=== PATIENT | male | born 1955 | race Caucasian/White ===

== ENCOUNTER 2020-08-22 11:56 | Inpatient (IN) | payer MEDICARE, OTHER ==
[~2020-08-22] VITALS: Ht 180.3 cm; Wt 95.3 kg
[2020-08-22] MEDS ORDERED: MECLIZINE HCL 25 MG TABLET PO ONE (12:15)
[2020-08-22] MEDS ORDERED: IV NORMAL SALINE 1000 ML BAG IV ONE (12:15)
[2020-08-22] MEDS ORDERED: ASPI-612 PO (12:26)
[2020-08-22] MEDS ORDERED: MECLIZINE HCL 25 MG TABLET ONE (12:28)
--- NOTE | 2020-08-22 12:30 | NUR ---
Pt refused to have blood drawn at this time, Dr Cardozo made aware.
--- NOTE | 2020-08-22 12:34 | NUR ---
Dr Cardozo at the bedside for MSE.
--- NOTE | 2020-08-22 12:50 | NUR ---
Pt out of Er for CT.
--- NOTE | 2020-08-22 13:28 | NUR ---
Covid swab done and sent to lab
[2020-08-22 13:45] LABS: BASOPHILS % (AUTO) 0.3 % (0.0-2.0); EOSINOPHILS # (AUTO) 0.1 K/uL (0.0-0.7); EOSINOPHILS % (AUTO) 0.9 % (0.0-7.0); HEMATOCRIT 44.7 % (36.7-47.1); HEMOGLOBIN 14.9 g/dL (12.5-16.3); LYMPHOCYTES # (AUTO) 0.7 K/uL (20.0-40.0); LYMPHOCYTES % (AUTO) 11.8 % (20.5-51.5); MEAN CORPUSCULAR HEMOGLOBIN 31.9 uug (23.8-33.4); MEAN CORPUSCULAR HGB CONC 33 g/dL (32.5-36.3); MEAN CORPUSCULAR VOLUME 95.5 fL (73.0-96.2); MONOCYTES # (AUTO) 0.6 K/uL (2.0-10.0); MONOCYTES % (AUTO) 9.3 % (0.0-11.0); NEUTROPHILS # (AUTO) 4.7 K/uL (1.8-8.9); NEUTROPHILS % (AUTO) 77.7 % (38.5-71.5); PLATELET COUNT (AUTO) 190 K/uL (152-348); RED BLOOD CELL COUNT(AUTO) 4.68 MIL/uL (4.06-5.63)
[2020-08-22 14:01] LABS: CREATININE 0.8 mg/dL (0.6-1.3); POTASSIUM 3.7 mmol/L (3.5-5.1)
[2020-08-22 14:07] LABS: BILIRUBIN,DIRECT 0.1 mg/dL (0.0-0.2); BILIRUBIN,TOTAL 0.3 mg/dL (0.2-1.0); TOTAL PROTEIN, SERUM 6.7 g/dL (6.4-8.2)
[2020-08-22 14:25] LABS: *BILIRUBIN,URIN NEGATIVE (NEGATIVE); *BLOOD, URINE NEGATIVE (NEGATIVE); *CLARITY,URINE CLEAR (CLEAR); *COLOR,URINE YELLOW (YELLOW); *KETONES,URINE NEGATIVE (NEGATIVE); *UROBILINOGEN,URINE 0.2 E.U./dl (NORMAL); LEUKOCYTE ESTERASE ,URINE NEGATIVE (NEGATIVE); NITRITE, URINE NEGATIVE (NEGATIVE); PH,URINE 6.5 (5.0-8.0); UGLUCOSE NEGATIVE (NEGATIVE)
--- NOTE | 2020-08-22 15:48 | NUR ---
64 YEAR OLD MALE RECEIVED TO ROOM 304 FOR SYNCOPE .PT IS AXOX4/VS ARE STABLE CALL LIGHT WITH IN REACH. NOTIFIED FOR THE ADMISSION
[2020-08-22 16:00] VITALS: BP 143/75
[2020-08-22] MEDS ORDERED: ONDANSETRON 4 MG/2 ML VIAL IV PRN (16:00)
[2020-08-22] MEDS ORDERED: IV NS 1000 ML 1,000 ML IV PRN (16:00)
[2020-08-22] MEDS ORDERED: Z GUARD REMEDY PASTE 57 GM TUBE TOP PRN (16:00)
[2020-08-22] MEDS ORDERED: MAGNESIUM HYDROXIDE 30 ML LIQUID UDC PO PRN (16:00)
[2020-08-22] MEDS ORDERED: ACETAMINOPHEN 325 MG TABLET PO PRN (16:00)
[2020-08-22] MEDS ORDERED: SWABABLE VALVE TRANSFER SET EA MC ONE (17:00)
[2020-08-22] MEDS ORDERED: IOHEXOL 350 100 ML INFUS..BTL ONE (17:00)
[2020-08-22] MEDS ORDERED: IV NORMAL SALINE 250 ML IV ONE (17:00)
[2020-08-22] MEDS ORDERED: CLIN300C12 PO (17:44)
--- NOTE | 2020-08-22 18:20 | NUR ---
pt refused the iv fluids and cta of the brain made aware
[2020-08-22 20:17] VITALS: BP 140/77
[2020-08-22] MEDS: SIMVASTATIN 10 MG TABLET PO SCH (21:00)
[2020-08-22] MEDS: CULTURELLE CAPSULE PO SCH (21:00)
[2020-08-22] MEDS: TAMSULOSIN HCL 0.4 MG CAP.SR.24H PO SCH (21:00)
[2020-08-22] MEDS: ENOXAPARIN SODIUM 40 MG/0.4 ML DISP.SYRIN SQ SCH (21:00)
--- NOTE | 2020-08-22 22:46 | NUR ---
Received patient sitting in bed. AAOx4. No s/s of acute distress noted at this time. Pt on RA denies SOB, lightheadedness, and dizziness. hospital monitor in place, Sinus rhythm HR 79. Patient refused all evening medications stating "I do not like to take anything at night, what if I am asleep and do not know if I am having a reaction. I came here to fix my headaches and not all this other minor stuff". Provided patient education on medications, patient made aware and continued to refuse. Bed low and locked. Safety measures in place.
--- NOTE | 2020-08-23 00:21 | NUR ---
Patient refused midnight medications stating "Ill take it in the morning, I don't want to start anything new at night". Provided patient with medication education, continued to refused.
[2020-08-23 00:40] VITALS: BP 134/87
[2020-08-23 05:23] VITALS: BP 124/61
[2020-08-23 06:16] LABS: BASOPHILS % (AUTO) 0.5 % (0.0-2.0); EOSINOPHILS # (AUTO) 0.1 K/uL (0.0-0.7); EOSINOPHILS % (AUTO) 2.1 % (0.0-7.0); HEMATOCRIT 42.8 % (36.7-47.1); HEMOGLOBIN 14.3 g/dL (12.5-16.3); LYMPHOCYTES # (AUTO) 1.5 K/uL (20.0-40.0); LYMPHOCYTES % (AUTO) 22.7 % (20.5-51.5); MEAN CORPUSCULAR HGB CONC 33 g/dL (32.5-36.3); MEAN CORPUSCULAR VOLUME 95.8 fL (73.0-96.2); MONOCYTES # (AUTO) 0.7 K/uL (2.0-10.0); MONOCYTES % (AUTO) 10.8 % (0.0-11.0); NEUTROPHILS # (AUTO) 4.2 K/uL (1.8-8.9); NEUTROPHILS % (AUTO) 63.9 % (38.5-71.5); PLATELET COUNT (AUTO) 203 K/uL (152-348); RED BLOOD CELL COUNT(AUTO) 4.47 MIL/uL (4.06-5.63); WHITE BLOOD COUNT (AUTO) 6.6 K/uL (3.6-10.2)
[2020-08-23 06:35] LABS: CREATININE 0.8 mg/dL (0.6-1.3); MAGNESIUM 2.3 mg/dL (1.8-2.4)
[2020-08-23 06:48] LABS: THYROID STIMULATING HORMONE 1.445 mIU/mL (0.358-3.740)
[2020-08-23] MEDS: PANTOPRAZOLE SODIUM 40 MG TABLET.DR PO SCH (06:56)
--- NOTE | 2020-08-23 07:30 | NUR ---
Received pt in bed awake, alert and oriented times 4. Pt is hyperverbal. He is worried about everything including medications and treatments. He is refusing to take medications because he says he searched them up in internet and that can cause him arm. No distress noted. Pt is anxious and worried. Patient is on room air with IV in right wrist. Safety precautions are in place. Will continue to monitor.
[2020-08-23] MEDS: CLINDAMYCIN HCL 300 MG CAPSULE PO SCH ×4 (07:56→17:29)
[2020-08-23] MEDS: CULTURELLE CAPSULE PO SCH ×2 (08:44→21:00)
[2020-08-23] MEDS: ASPIRIN 81 MG TAB.CHEW PO SCH (08:44)
[2020-08-23 11:27] VITALS: BP 111/73
--- NOTE | 2020-08-23 14:30 | NUR ---
Started new IV on patient for CTA scan on the left antecubital. IV intact patent and flushing. Patient tolerated procedure well.
[2020-08-23] MEDS ORDERED: IOHEXOL 350 100 ML INFUS..BTL ONE (14:37)
[2020-08-23] MEDS ORDERED: SWABABLE VALVE TRANSFER SET EA MC ONE (14:37)
[2020-08-23] MEDS ORDERED: IV NORMAL SALINE 250 ML IV ONE (14:38)
--- NOTE | 2020-08-23 14:45 | NUR ---
Received call from sterile technician. Stated that patient complaining that he thinks IV not in place. US done prior to injecting dye & showed that IV was in the vein & patent. After multiple 10cc flushes with ns, tech. attempted to inject the dye. States the high power flush of dye immediately blew the vein. Coming back to room. Stated patient very upset, & not accepting the fact that his veins are very fragile. Warm pack applied.
--- NOTE | 2020-08-23 15:00 | NUR ---
Pt brought back from CT scan because IV infiltrated. Tech report that the vein blew after multiple flushes. He reports that with the high pressure the vein blew. Pt was Irate. Blamed me for starting a bad IV. He says he doesn't want me as his nurse any longer. After multiple tries to calm him down and restart IV he refused and also says he will not do the CT today. Heat and ice packs were given to pt. Charge nurse, nursing supervisor metalizing and hospitalist all aware of what happened. Will continue to monitor.
[2020-08-23 15:30] VITALS: BP 139/74
--- NOTE | 2020-08-23 17:30 | NUR ---
ATTEMPTED TO RESTART IV FOR CONTRAST ADMINISTRATION. PATIENT REFUSED. STATES HE IS FEELING TOO ANXIOUS AT THIS TIME AND HE IS FEARFUL OF THE DYE. Frida PACHECO.
--- NOTE | 2020-08-23 17:30 | NUR ---
ATTEMPTED TO RESTART IV. PATIENT REFUSED. STATES HE FEELING TOO ANXO
--- NOTE | 2020-08-23 19:00 | NUR ---
Pt refuses to have me continue my care for him. Endorse pt to oncoming nurse.
--- NOTE | 2020-08-23 20:04 | NUR ---
Notify Caty Schneider logging worker patient complain of sheila ear numbness, and left arm swelling, and also patient request for aspirin 325mg as needed for pain instead of tylenol. INSPECTOR OPEN DIE ordered the change to aspirin 325mg at this time, no other new order.
--- NOTE | 2020-08-23 20:08 | NUR ---
According to Caty Schneider patient did not received any contrast from the procedure and patient refused to continue the procedure.
[2020-08-23] MEDS ORDERED: ASPIRIN 325 MG TABLET PO PRN (20:15)
[2020-08-23 20:27] VITALS: BP 146/85
[2020-08-23] MEDS: ENOXAPARIN SODIUM 40 MG/0.4 ML DISP.SYRIN SQ SCH (21:00)
[2020-08-23] MEDS: TAMSULOSIN HCL 0.4 MG CAP.SR.24H PO SCH (21:00)
[2020-08-23] MEDS: SIMVASTATIN 10 MG TABLET PO SCH (21:00)
--- NOTE | 2020-08-23 21:27 | NUR ---
Patient refused all medications, stated "I don't take medications". Patient noted hyperverbal, pressured speech, keep repeating self of multiple complains of right arm being swollen, numbness on ears/pain, ENGINEERING CONSULTANT was aware of patient multiple complain. Patient non compliant with medications, non compliant with test being offered and refused. Teach patient to keep arms elevated, given extra pillow. Patient arm swollen but no redness noted, cont to monitor.
--- NOTE | 2020-08-23 23:14 | NUR ---
Patient awake alert oriented in bed. Patient has episode of 10 beats V tach, when to see the patient, patient alert oriented, no complain of chest pain, no shortness of breath, patient in bed resting, asymptomatic and moving or positioning the 2 pillow to elevate his swollen left arm. Patient has multiple episode of anxiety and seen by Psyche Md. Patient is non compliant with medications, no medications was ordered. will cont to monitor.
--- NOTE | 2020-08-24 00:10 | NUR ---
Patient request for aspirin 325mg po for headache and pain, but refused to take it twice, refused to take antibiotic cleocin po. Patient makes his own schedule on when to take his antibiotic, reorient patient importance of the medication but refused,
[2020-08-24 00:41] VITALS: BP 125/87
[2020-08-24 05:05] VITALS: BP 117/70
[2020-08-24] MEDS: CLINDAMYCIN HCL 300 MG CAPSULE PO SCH ×3 (06:18→12:31)
[2020-08-24] MEDS: PANTOPRAZOLE SODIUM 40 MG TABLET.DR PO SCH (06:26)
--- NOTE | 2020-08-24 06:26 | NUR ---
Patient took po antibiotics but refused protonix, and needs lots of encouragement before lab draw. cont to monitor, still complain of headaches but refused pain medications v/s stable.
[2020-08-24 06:43] LABS: BASOPHILS % (AUTO) 0.5 % (0.0-2.0); EOSINOPHILS # (AUTO) 0.2 K/uL (0.0-0.7); EOSINOPHILS % (AUTO) 2.5 % (0.0-7.0); HEMATOCRIT 44.5 % (36.7-47.1); HEMOGLOBIN 14.9 g/dL (12.5-16.3); LYMPHOCYTES # (AUTO) 1.4 K/uL (20.0-40.0); LYMPHOCYTES % (AUTO) 21.2 % (20.5-51.5); MEAN CORPUSCULAR HEMOGLOBIN 31.9 uug (23.8-33.4); MEAN CORPUSCULAR HGB CONC 34 g/dL (32.5-36.3); MEAN CORPUSCULAR VOLUME 95.4 fL (73.0-96.2); MONOCYTES # (AUTO) 0.7 K/uL (2.0-10.0); MONOCYTES % (AUTO) 10.2 % (0.0-11.0); NEUTROPHILS # (AUTO) 4.4 K/uL (1.8-8.9); NEUTROPHILS % (AUTO) 65.6 % (38.5-71.5); PLATELET COUNT (AUTO) 216 K/uL (152-348); RED BLOOD CELL COUNT(AUTO) 4.66 MIL/uL (4.06-5.63); WHITE BLOOD COUNT (AUTO) 6.7 K/uL (3.6-10.2)
[2020-08-24 07:02] LABS: CREATININE 0.9 mg/dL (0.6-1.3); MAGNESIUM 2.3 mg/dL (1.8-2.4); PHOSPHOROUS 3.6 mg/dL (2.5-4.9)
--- NOTE | 2020-08-24 07:23 | NUR ---
Patient continue to refused IV hydration, talks repetitively, endorsed to next shift, SUPERVISOR JOINERS aware of non compliant with care and medications.
--- NOTE | 2020-08-24 07:48 | NUR ---
rounded patient in room and noted to be very upset about his past care mentioning again about his iv being infiltrated yesterday before CT. DR BRAUN in and spoke with patient. see notes. SR on monitor
[2020-08-24] MEDS: ASPIRIN 81 MG TAB.CHEW PO SCH (08:53)
[2020-08-24] MEDS: CULTURELLE CAPSULE PO SCH (08:53)
[2020-08-24] MEDS ORDERED: SWABABLE VALVE TRANSFER SET EA MC ONE (09:29)
[2020-08-24] MEDS ORDERED: IV NORMAL SALINE 250 ML IV ONE (09:29)
[2020-08-24] MEDS ORDERED: IOHEXOL 350 100 ML INFUS..BTL ONE (09:29)
--- NOTE | 2020-08-24 10:05 | NUR ---
BACK FROM CT SCAN VIA W/C, AWAITING FOR RESULTS.
[2020-08-24 11:18] VITALS: BP 129/81
[2020-08-24] MEDS ORDERED: SIMV10TA98 PO (13:26)
--- NOTE | 2020-08-24 14:12 | NUR ---
DISCHARGED HOME STABLE WITH RX ATB AND STATIN. INSTRUCTION GIVEN
== END 2020-08-24 14:00 | disposition home or self-care (01) | DRG 74 ==
LOC: ER 11:56 → TELE3 15:02
PROVIDERS: ADMIT Registered Nurse; ATTEND Registered Nurse
DX: G90.8 Other disorders of autonomic nervous system (principal); F41.0 Panic disorder [episodic paroxysmal anxiety]; N40.0 Benign prostatic hyperplasia without lower urinary tract symptoms; Z79.82 Long term (current) use of aspirin; R10.9 Unspecified abdominal pain; R51.9 Headache, unspecified; Z86.16 Personal history of COVID-19; F42.9 Obsessive-compulsive disorder, unspecified; F32.9 Major depressive disorder, single episode, unspecified; F41.9 Anxiety disorder, unspecified; N13.9 Obstructive and reflux uropathy, unspecified; R79.89 Other specified abnormal findings of blood chemistry; K08.409 Partial loss of teeth, unspecified cause, unspecified class; Z20.822 Contact with and (suspected) exposure to COVID-19; Z91.14 Patient's other noncompliance with medication regimen
CPT/HCPCS: 36415; 70030-TC; 70450; 70496; 83605; 83615; 83735; 84100; 84153; 84443; 85025; 85730; 86140; 93005; 93880; A4663; G0378; J1650; J7030; J7050; J8597; Q9967; U0003

== ENCOUNTER 2021-05-19 22:18 | Emergency (ER) | payer MEDICARE, OTHER ==
[~2021-05-19] VITALS: Ht 180.3 cm; Wt 97.5 kg
[~2021-05-19 22:18] MED LIST: CLIN300C12 PO; SIMV10TA98 PO
--- NOTE | 2021-05-19 22:48 | NUR ---
DR SOTO AT BEDSIDE FOR MSE.
[2021-05-19] MEDS ORDERED: CLIN300C12 PO (23:12)
--- NOTE | 2021-05-19 23:39 | NUR ---
Patient has been cleared for DC by SAV. Patient discharged to home in stable condition. Written and verbal after care instructions given. Patient verbalizes understanding of instructions. Stressed follow up or return to ER for worsening s/s. Ambulated out of ED insteady gait.
[2021-05-19 23:40] VITALS: BP 145/70
== END 2021-05-19 23:41 | disposition home or self-care (01) ==
LOC: ER 22:21
DX: R22.2 Localized swelling, mass and lump, trunk (principal); R03.0 Elevated blood-pressure reading, without diagnosis of hypertension
CPT/HCPCS: A4663

== ENCOUNTER 2021-07-01 09:47 | Emergency (ER) | payer MEDICARE, OTHER ==
[~2021-07-01] VITALS: Ht 180.3 cm; Wt 86.2 kg
[2021-07-01] MEDS ORDERED: SWABABLE VALVE TRANSFER SET EA MC ONE (10:41)
[2021-07-01] MEDS ORDERED: IV NORMAL SALINE 250 ML IV ONE (10:41)
[2021-07-01] MEDS ORDERED: IOHEXOL 350 100 ML INFUS..BTL ONE (10:41)
[2021-07-01 10:52] LABS: HEMATOCRIT 45.2 % (36.7-47.1); MEAN CORPUSCULAR HEMOGLOBIN 32.3 uug (23.8-33.4); MEAN CORPUSCULAR VOLUME 94.2 fL (73.0-96.2); PLATELET COUNT (AUTO) 238 K/uL (152-348)
[2021-07-01 10:55] LABS: POTASSIUM 4.2 mmol/L (3.5-5.1)
[2021-07-01 11:00] LABS: BILIRUBIN,DIRECT 0.2 mg/dL (0.0-0.2); BILIRUBIN,TOTAL 0.8 mg/dL (0.2-1.0); TOTAL PROTEIN, SERUM 7.7 g/dL (6.4-8.2)
--- NOTE | 2021-07-01 11:07 | NUR ---
pt verbalized his anxiety is kicking in and requested to be transfered to another room
--- NOTE | 2021-07-01 11:18 | NUR ---
Pt is arguementative and demanding, wants to speak with the doctor about litterally every procedure from IV to CT, and will not speak to a nurse about the issues.
[2021-07-01 12:43] LABS: ETHANOL < 3 MG/DL (0-0)
[2021-07-01 12:59] LABS: ACETAMINOPHEN < 2.0 ug/mL (10-30)
--- NOTE | 2021-07-01 13:00 | NUR ---
pt refused IV saline that was ordered
--- NOTE | 2021-07-01 13:10 | NUR ---
Pt back from CT
--- NOTE | 2021-07-01 13:48 | NUR ---
Pt refused lunch tray or drink.
--- NOTE | 2021-07-01 14:32 | NUR ---
removed IV, intact, site okay, applied bandage
--- NOTE | 2021-07-01 14:32 | NUR ---
Patient does not wish to proceed with medical care recommended by Dr. Salguero. Patient given information related to possible complications, up to and including , which could occur as a result of leaving the hospital at this time. Patient verbalizes understanding of risks involved due to leaving against medical advice. Patient has signed AMA form.
[2021-07-01 14:36] VITALS: BP 129/96
== END 2021-07-01 14:44 | disposition left against medical advice (07) ==
LOC: ER 09:47
DX: F22 Delusional disorders (principal); R55 Syncope and collapse; F41.9 Anxiety disorder, unspecified; Z53.29 Procedure and treatment not carried out because of patient's decision for other reasons
CPT/HCPCS: 36415; 70450; 70496; 70498; 71045; 80048; 80076; 80299; 80307; 80320; 84484; 85025; 85730; 93005; 99285; Q9967; A4663; G0480; J7030; J7050

== ENCOUNTER 2021-07-21 07:58 | Emergency (ER) | payer MEDICARE, OTHER ==
[~2021-07-21] VITALS: Ht 180.3 cm; Wt 86.2 kg
--- NOTE | 2021-07-21 08:15 | NUR ---
DR HANDLEY AT BEDSIDE FOR EVALUATION. Addendum: 07/21/21 at 1039 by DANAYAIDENTHA PT REFUSED EKG. DR HANDLEY AT BEDSIDE FOR EVAL.
--- NOTE | 2021-07-21 08:37 | NUR ---
CALED ART KAPELLA FOR PSYCH EVAL.
--- NOTE | 2021-07-21 08:59 | NUR ---
PT REFUSES TO TAKE THE MED.
[2021-07-21] MEDS ORDERED: OLANZAPINE 5 MG TABLET PO ONE (09:00)
[2021-07-21] MEDS ORDERED: OLANZAPINE 5 MG TABLET ONE (09:01)
--- NOTE | 2021-07-21 10:05 | NUR ---
CRISIS INTERVENTION FINANCIAL CONSULTANT AT BEDSIDE. PT COOPERATIVE WITH CONVERSATION AT THIS TIME.
--- NOTE | 2021-07-21 10:37 | NUR ---
PT REFUSED SUGGESTION FOR VOLUNTARY ADM TO MENTAL HEALTH FACILITY. DECIDED TO BE DISCHARGED UNDER HIS OWN COGNITION. SPOKE TO BOTH MD AND PSYCH FBI PROFILER.
[2021-07-21 10:40] VITALS: BP 138/80
--- NOTE | 2021-07-21 10:41 | NUR ---
PT REFUSED THE ZYPREXIA PILL, WASTE WITNESSED WITH ARCHIE Solorzano RN.
== END 2021-07-21 10:41 | disposition home or self-care (01) ==
LOC: ER 07:58
DX: R55 Syncope and collapse (principal); F41.9 Anxiety disorder, unspecified; Z20.822 Contact with and (suspected) exposure to COVID-19; Z86.16 Personal history of COVID-19; N40.1 Benign prostatic hyperplasia with lower urinary tract symptoms; N13.8 Other obstructive and reflux uropathy; Z87.440 Personal history of urinary (tract) infections
CPT/HCPCS: 93005; A4663

== ENCOUNTER 2021-07-24 09:37 | Emergency (ER) | payer MEDICARE, OTHER ==
--- NOTE | 2021-07-24 10:00 | NUR ---
pt not in the er waiting room or outside er door.
== END 2021-07-24 10:00 | disposition left against medical advice (07) ==
LOC: ER 09:43
DX: Z53.21 Procedure and treatment not carried out due to patient leaving prior to being seen by health care provider (principal)

== ENCOUNTER 2021-07-26 20:48 | Emergency (ER) | payer MEDICARE, OTHER ==
--- NOTE | 2021-07-26 20:49 | NUR ---
Patient was called to be triaged but was not present in the waiting room or outdside of ER.
--- NOTE | 2021-07-26 21:05 | NUR ---
Patient was called to be triaged but was not in the waiting room or outside of ER.
--- NOTE | 2021-07-26 21:15 | NUR ---
Patient was called to be triaged but was not present in the waiting room. PATIENT WAS NOT TRIAGED OR SEEN BY ERMD.
== END 2021-07-26 21:20 | disposition left against medical advice (07) ==
LOC: ER 20:50
DX: Z53.21 Procedure and treatment not carried out due to patient leaving prior to being seen by health care provider (principal)

== ENCOUNTER 2021-07-27 08:26 | Inpatient (IN) | payer MEDICARE, OTHER ==
[~2021-07-27] VITALS: Ht 175.3 cm; Wt 86.2 kg
--- NOTE | 2021-07-27 08:36 | NUR ---
Dr King at the bedside for MSE. Pt appears very anxious, restless and paranoid.
[2021-07-27] MEDS ORDERED: OLANZAPINE 10 MG VIAL IM ONE ×2 (08:45→08:53)
[2021-07-27 09:12] LABS: HEMATOCRIT 45.4 % (36.7-47.1); MEAN CORPUSCULAR HEMOGLOBIN 32.4 uug (23.8-33.4); MEAN CORPUSCULAR VOLUME 93.5 fL (73.0-96.2); PLATELET COUNT (AUTO) 237 K/uL (152-348)
[2021-07-27 09:21] LABS: CARBON DIOXIDE 27 mmol/L (21-32); CHLORIDE 106 mmol/L (98-107); GLUCOSE 106 mg/dL (74-106); POTASSIUM 4.1 mmol/L (3.5-5.1); UREA NITROGEN, BLOOD 23 mg/dL (7-18)
[2021-07-27 09:27] LABS: ALANINE AMINOTRANSFERASE 33 U/L (16-63); ALKALINE PHOSPHATASE 67 U/L (50-136); ASPARTATE AMINOTRANSFERASE 17 U/L (15-37); BILIRUBIN,DIRECT 0.2 mg/dL (0.0-0.2); BILIRUBIN,TOTAL 0.7 mg/dL (0.2-1.0); TOTAL PROTEIN, SERUM 7.3 g/dL (6.4-8.2)
[2021-07-27 09:39] LABS: ACETAMINOPHEN < 2.0 ug/mL (10-30)
--- NOTE | 2021-07-27 09:45 | NUR ---
Pt is medically cleared by Dr King, Lebron Robert HOSPICE LIAISON from PET notified for psych eval. Pt is sitting in bed, NAD noted.
[2021-07-27 11:37] LABS: *BILIRUBIN,URIN NEGATIVE (NEGATIVE); *BLOOD, URINE NEGATIVE (NEGATIVE); *CLARITY,URINE CLEAR (CLEAR); *COLOR,URINE YELLOW (YELLOW); *KETONES,URINE TRACE (NEGATIVE); *UROBILINOGEN,URINE 0.2 E.U./dl (NORMAL); LEUKOCYTE ESTERASE ,URINE TRACE (NEGATIVE); NITRITE, URINE NEGATIVE (NEGATIVE); UGLUCOSE NEGATIVE (NEGATIVE)
--- NOTE | 2021-07-27 11:40 | NUR ---
Art Capilla DIRECTOR SUPPLY CHAIN from PET, in ER evaluating the pt.
[2021-07-27 11:43] LABS: ETHANOL < 3 MG/DL (0-0)
[2021-07-27] MEDS ORDERED: LORAZEPAM 2 MG/1 ML VIAL ONE (11:43)
[2021-07-27] MEDS ORDERED: LORAZEPAM 2 MG/1 ML VIAL IM ONE (11:45)
--- NOTE | 2021-07-27 11:55 | NUR ---
Pt placed on 5150 hold by PET for GD.
[2021-07-27 12:03] LABS: *AMPHETAMINE, URINE NEGATIVE (NEGATIVE); *CANNABINOID, URINE NEGATIVE (NEGATIVE); *COCCAINE, URINE NEGATIVE (NEGATIVE); *OPIATE, URINE NEGATIVE (NEGATIVE); *PHENCYCLIDINE SCREEN,URINE NEGATIVE (NEGATIVE)
--- NOTE | 2021-07-27 12:10 | NUR ---
Pt started yelling that he does not wnt to stay in hospital and statred running out of ER. hyun hdz called and security started chasing pt and brought him back to Er for admin.
[2021-07-27] MEDS ORDERED: HALOPERIDOL LACTATE 5 MG/1 ML VIAL IM ONE (12:15)
--- NOTE | 2021-07-27 12:20 | NUR ---
Pt transfered to [facility], accompained by sucurity officers.
--- NOTE | 2021-07-27 12:32 | NUR ---
GPS: Nursing Notes: Admitted Notes: Patient is admitted to MHU in a 5150 GD due to patient complaining of not being able to function, he complains of OCD which paralizes him and keeps him form eating, bathing, and sleeping, hearing voices, he has rapid thinking, unable to stop the obsessive voices, he has pressured speech, he is somewhat disorganized, his judgment is impaired, he has poor insight and impulse control, he is unable to provide for his food, mcc, or clothing due to a mental disorder, patient complains of his brain hurting and not letting him lay down. On face to face assessment, patient is A/Ox4, denies SI/HI, denies AH/VH, stated "I am not hearing voices..", "No, I do not want to hurt myself..", ambulatory, self care, unkempt appearance, poor grooming, malodorous, refusing to take a shower, depressed mood and anxious affect, cooperative with admission, believes that he is leaving as soon as he sees the doctor, unable to formulate a viable plan for self care, evasive when questioned by staff at times, oriented to the unit, admitting package with Patient's Rights book in package given to the patient, patient went to bed and slept, Dr. Carranza and [facility] were call by charge nurse for admitting orders.
[2021-07-27] MEDS ORDERED: MAG HYDROX/AL HYDROX/SIMETH 30 ML LIQUID UDC PO PRN (13:30)
[2021-07-27] MEDS ORDERED: ACETAMINOPHEN 325 MG TABLET PO PRN (13:30)
[2021-07-27] MEDS ORDERED: MAGNESIUM HYDROXIDE 30 ML LIQUID UDC PO PRN (13:30)
[2021-07-27] MEDS ORDERED: TEMAZEPAM 7.5 MG CAPSULE PO PRN (13:30)
[2021-07-27] MEDS ORDERED: CLONAZEPAM 0.5 MG TABLET PO PRN (13:30)
[2021-07-27] MEDS ORDERED: BLOOD SUGAR DIAGNOSTIC 1 EACH STRIP VI ONE (14:00)
[2021-07-27 15:06] VITALS: BP 136/88
[2021-07-27 16:25] VITALS: BP 109/58
[2021-07-27 16:30] LABS: BACTERIA,URINE NONE SEEN /HPF (NONE SEEN); MUCUS,URINE FEW /LPF (0-FEW); RBC,URINE 0-3 /HPF (0-3); SQUAMOUS EPITHELIAL CELL,UR FEW /HPF (NONE SEEN)
[2021-07-27 20:00] VITALS: BP 113/72
--- NOTE | 2021-07-28 05:02 | NUR ---
Received the patient standing at the nurses station asking for food. Guest Services Ambassador noticed the patient had a foul smell and offered the patient a shower. The patient refused. This food writer tried to have meaningful conversation with the patient, but patient was easily irritated and argumentative. Unable to express himself with any depth or insight. Safety stratiges are in place. The patient is paranoid and hearing voices and reluctant to take medications. Continuing to monitoring for behavior escalation and potential AWOL risk.
[2021-07-28 07:03] LABS: HEMATOCRIT 46.1 % (36.7-47.1); MEAN CORPUSCULAR HEMOGLOBIN 31.2 uug (23.8-33.4); MEAN CORPUSCULAR VOLUME 94.1 fL (73.0-96.2); PLATELET COUNT (AUTO) 216 K/uL (152-348)
[2021-07-28 07:16] LABS: POTASSIUM 4.6 mmol/L (3.5-5.1)
[2021-07-28 09:00] VITALS: BP 118/74
--- NOTE | 2021-07-28 11:56 | NUR ---
GPS: Nursing Notes: Thought Disorder: Patient is awake and responding to his name, A/Ox4, impaired judgment, saying one thing to one staff and another thing to another staff, denies AH/VH, isolative in his room, refusing to participate in therapeutic groups, depressed mood and anxious affect, poor impulse control, poor grooming, refusing to shower, unable to formulate a viable plan for self care, continue with treatment plan.
[2021-07-28] MEDS: LORAZEPAM 0.5 MG TABLET PO PRN ×2 (12:13→20:08)
[2021-07-28 15:51] LABS: THYROID STIMULATING HORMONE 0.648 mIU/mL (0.358-3.740)
[2021-07-28 16:00] VITALS: BP 148/86
[2021-07-28 20:00] VITALS: BP 126/77
[2021-07-28] MEDS: MIRTAZAPINE 15 MG TABLET PO SCH (20:08)
[2021-07-29 07:45] VITALS: BP 161/89
[2021-07-29] MEDS: CYANOCOBALAMIN 1,000 MCG TABLET PO SCH (09:38)
--- NOTE | 2021-07-29 10:57 | NUR ---
[facility] Admit Source: Pt is admitted to [facility] on a 5150 hold for gravely disabled adult. Pt. [address] alone at [address], [place] [address]. Upon discharge, pt. would like to return to this address. [facility] contacted, pt's mother, Radha ([phone]) who is aware of pt's hospitalization and stated she lives in [place] in an assisted living. [facility] will continue to work with pt, family and MD for a safe and proper discharge plan.
--- NOTE | 2021-07-29 10:57 | NUR ---
[facility] Initial Discharge Note: Pt is admitted to [facility] on a 5150 hold for gravely disbaled adult. Pt. lives alone at [address], [place] [address]. Upon discharge, pt. would like to return to this address. [facility] contacted, pt's mother, Radha ([phone]) who is aware of pt's hospitalization and stated she lives in [place] in an assisted living. [facility] will continue to work with pt, family and MD for a safe and proper discharge plan.
[2021-07-29] MEDS: LORAZEPAM 0.5 MG TABLET PO PRN ×2 (11:01→20:17)
[2021-07-29 16:00] VITALS: BP 139/81
--- NOTE | 2021-07-29 17:29 | NUR ---
Received patient awake in her room. A/O X 3 - 4 to person, place, environment. Pt. is demanding, fixated on discharge from the hospital, anxious. Ativan 0.5 mg was given, effective. Ambulates without assistance. Denies pain or any discomfort. Denies SI/HI AH/VH. Respirations are regular and unlabored. Patient appearance is age appropriate. Pt. is encourage to verbalize concerns. Fall and safety precautions implemented.
[2021-07-29] MEDS: ATORVASTATIN 10 MG TABLET PO SCH ×2 (20:16→20:20)
[2021-07-29] MEDS: MIRTAZAPINE 15 MG TABLET PO SCH (20:17)
[2021-07-29 20:27] VITALS: BP 144/82
--- NOTE | 2021-07-30 06:12 | NUR ---
Patient refuses to bathe . He has a strong body odor and is wearing the same dirty clothes from day 1. Despite encouragement and reassurance, this patient makes up excuses after excuse for not showering. The patient refused to take his PM medication of Lipitor as well. The patient has irrational thought process, minimal reasoning ability and is anxious most of the time. Poor insight noted. The patient has verbalized wanting to leave, and remains paranoid about taking medications. No improvement noted since the date of admission. Sleep hours were 7.45. Safety Stratiges are in place.
[2021-07-30] MEDS: CYANOCOBALAMIN 1,000 MCG TABLET PO SCH ×2 (08:55→09:00)
[2021-07-30 09:39] VITALS: BP 111/71
--- NOTE | 2021-07-30 12:00 | NUR ---
Gps/Sign Carpenter- Claimed he is feeling like he is going to pass out , patient was walking back and forth the hallway, instructed to relax and go bed if dizzy will check his vital signs. Ativan 0.5 mg 1 tab po. given for anxiety, hesitant to take but was able to take after encouragement. B/P 154/90 HR 75 , will rechecked when more relax.
[2021-07-30] MEDS: LORAZEPAM 0.5 MG TABLET PO PRN ×2 (12:09→17:55)
--- NOTE | 2021-07-30 15:25 | NUR ---
Firearms Report: Detail Assembler completed and submitted a [employer] firearms report for 5150 grave disability certifications. A copy of report has been placed in patient chart.
[2021-07-30 18:29] VITALS: BP 113/68
[2021-07-30 20:00] VITALS: BP 119/85
[2021-07-30] MEDS: ATORVASTATIN 10 MG TABLET PO SCH (20:37)
[2021-07-30] MEDS: MIRTAZAPINE 15 MG TABLET PO SCH (20:37)
[2021-07-31 07:30] VITALS: BP 133/74
[2021-07-31] MEDS: CYANOCOBALAMIN 1,000 MCG TABLET PO SCH (09:00)
--- NOTE | 2021-07-31 12:00 | NUR ---
GPS: PT ATTENDED THE 14 DAY HOLD HEARING WITH THE SUPERIOR COURT THROUGH [employer]. CLAIMS SPECIALIST DECISION APPROVE TO CONTINUE THE HOLD. PT DECIDED TO FILE A WRIT OF [employer]. PREPARED THE WRIT APPLICATION AND FAXED TO SUPERIOR COURT. RECEIVED REPORT ON FAX THAT PT FAX WAS SENT.
--- NOTE | 2021-07-31 13:01 | NUR ---
Gps/Swine Genetics Researcher- Patient noted filed request for petition Wrist of Axel Danielson , faxed to the court by Rn In Charge Evan , receiving confirmation , Called Dr Lonnie Carranza, (Psychiatrist) left message.
[2021-07-31] MEDS: LORAZEPAM 0.5 MG TABLET PO PRN ×2 (13:32→19:36)
--- NOTE | 2021-07-31 13:39 | NUR ---
Gps/Air Pollution Inspector- Called Superior [facility] to check if received faxed request for Writ of Axel Corpus , confirmation noted, but no date scheduled at this time, court will be calling back for the scheduled time and date in 2 days as informed.
[2021-07-31 15:33] VITALS: BP 133/77
[2021-07-31 19:58] VITALS: BP 137/85
[2021-07-31] MEDS: MIRTAZAPINE 15 MG TABLET PO SCH (20:29)
[2021-07-31] MEDS: ATORVASTATIN 10 MG TABLET PO SCH (20:29)
--- NOTE | 2021-08-01 06:20 | NUR ---
END OF SHIFT REPORT Patient rested well in between care; initially patient asked for ativan; pt also asked for food but refused onced available; reassurance given; safety maintained; continue to monitor; continue plan of care.
[2021-08-01 07:30] VITALS: BP 132/84
[2021-08-01] MEDS: CYANOCOBALAMIN 1,000 MCG TABLET PO SCH ×2 (08:32→09:15)
[2021-08-01] MEDS: LORAZEPAM 0.5 MG TABLET PO PRN ×2 (09:12→15:18)
--- NOTE | 2021-08-01 09:18 | NUR ---
Gps/Laborer Poultry Hatchery- Complained of being anxious and feeling weak, this am, stayed in the activity room during his breakfast, compliant with am med. ativan 0.5 mg 1 tab. given po. , adequate intake from breakfast , claimed of having a augusta rest
[2021-08-01 16:00] VITALS: BP 128/80
[2021-08-01 20:00] VITALS: BP 128/79
[2021-08-01] MEDS: MIRTAZAPINE 15 MG TABLET PO SCH (20:47)
[2021-08-01] MEDS: ATORVASTATIN 10 MG TABLET PO SCH (20:47)
[2021-08-02] MEDS: CYANOCOBALAMIN 1,000 MCG TABLET PO SCH (08:25)
[2021-08-02] MEDS: LORAZEPAM 0.5 MG TABLET PO PRN ×2 (10:00→16:14)
--- NOTE | 2021-08-02 16:02 | NUR ---
Received patient awake in her room. A/O X 3 - 4 to person, place, environment. Pt. is anxious, depressed, withdrawn. Ativan 0.5 mg was given at 10:00, effective. Ambulates independently. Denies pain. Denies SI/HI AH/VH. Respirations are regular and unlabored. Patient appearance is disheveled. Emotional support given. Fall and safety precautions implemented.
[2021-08-02 16:10] VITALS: BP 137/74
[2021-08-02 20:00] VITALS: BP 127/67
[2021-08-02] MEDS: ATORVASTATIN 10 MG TABLET PO SCH (20:14)
[2021-08-02] MEDS: MIRTAZAPINE 15 MG TABLET PO SCH (20:14)
[2021-08-03 07:45] VITALS: BP 138/92
[2021-08-03] MEDS: CYANOCOBALAMIN 1,000 MCG TABLET PO SCH (08:28)
--- NOTE | 2021-08-03 09:39 | NUR ---
Social Work Discharge Note Patient will be discharged home to his apartment today. He lives at [id number] [place] [address]. [address], [facility] [address]. Patient will return home via taxi to be provided by the hospital. Patient will follow up with his outpatient psychiatrist, Dr Dedra Eric ). Pt. will call and make an appointment after he returns home. His clinical abstractor is Dr Joseph Chambers, [address], [facility] [address] ([phone]) and he will follow up at Dr Chambers's clinic. Patient is alert and oriented x 3, calm and cooperative and agreeable with his discharge plan. Patient denies any wish to harm himself or others and will be educated about medication compliance after discharge.
--- NOTE | 2021-08-03 11:30 | NUR ---
GPS: Nursing Notes: Discharge Notes: Patient is awake and responding to his name, cooperative with nursing care, compliant with his medications, following staff directions, compliant with is medications, denies SI/HI, denies AH/VH, denies pain or discomfort at this time, denies SOB, discharge [place] to self at [address], [place] [address]. Discharge by Dona, FURNACE PUNCHER to go home via his own private vehicle - Per FURNACE PUNCHER, okay for him to drive home, instructions and prescription given to patient. Patient needs to follow up with Dr. Dedra Grimes (psychiatrist) and Dr. Joseph Chambers as soon as possible, patient stated that he will follow up as soon as possible. Took all his belongings with him, escorted to his car by staff.
--- NOTE | 2021-08-03 13:15 | NUR ---
Discharge Planning Addendum Patient did not leave via taxi but went home via his own vehicle which was parked in the hospital parking lot.
--- NOTE | 2021-08-03 13:49 | NUR ---
GPS: Nursing Notes: Petition For Writ of Axel Corpus: Staff called the [place] [facility] to inform - personal care assistant - Kevin that patient has been discharge today at 11:30am. Staff called the [place] [facility] because patient was scheduled for a hearing on 08/04/2021 at 08:30am.
== END 2021-08-03 11:30 | disposition home or self-care (01) | DRG 882 ==
LOC: ER 08:26 → GPS 11:58
PROVIDERS: ADMIT Nurse Practitioner Psychiatric/Mental Health; ATTEND Internal Medicine
DX: F42.9 Obsessive-compulsive disorder, unspecified (principal); F32.9 Major depressive disorder, single episode, unspecified; F41.9 Anxiety disorder, unspecified; E78.5 Hyperlipidemia, unspecified; E66.9 Obesity, unspecified; Z68.28 Body mass index [BMI] 28.0-28.9, adult; S01.01XA Laceration without foreign body of scalp, initial encounter; Z20.822 Contact with and (suspected) exposure to COVID-19; Z79.899 Other long term (current) drug therapy; N40.0 Benign prostatic hyperplasia without lower urinary tract symptoms; W19.XXXA Unspecified fall, initial encounter; Y93.9 Activity, unspecified; Y92.230 Patient room in hospital as the place of occurrence of the external cause
CPT/HCPCS: 36415; 70450; 84443; 85025; 93005; 97161; A4663; G0480; J2060; J2358

== ENCOUNTER 2021-08-09 14:00 | Emergency (ER) | payer MEDICARE, OTHER ==
[~2021-08-09] VITALS: Ht 180.3 cm; Wt 86.2 kg
[2021-08-09] MEDS ORDERED: LORAZEPAM 1 MG TABLET ONE (14:11)
[2021-08-09] MEDS ORDERED: LORAZEPAM 0.5 MG TABLET PO ONE (14:15)
--- NOTE | 2021-08-09 14:20 | NUR ---
PT IS IN ROOM #4B. DR KELLEY EVALUATED THE PT.
--- NOTE | 2021-08-09 14:22 | NUR ---
MEDICATED FOR ANXIETY PER MD ORDERS. PT ASKED FOR FOOD - GIVEN TURKEY SANDWICH AND CRANBERRY JUICE.
[2021-08-09] MEDS ORDERED: HALOPERIDOL LACTATE 5 MG/1 ML VIAL IM ONE (15:00)
[2021-08-09] MEDS ORDERED: LORAZEPAM 2 MG/1 ML VIAL IM ONE (15:00)
--- NOTE | 2021-08-09 15:00 | NUR ---
Patient requested refill of medication and stated that [facility]. Patient also requested that he have transportation back to his home as he doesn't have a way to get back home. A taxi voucher has been requested of the Journeyman Pipe Welder and approved.
[2021-08-09] MEDS ORDERED: CLOM25CA2 PO (15:11)
[2021-08-09] MEDS ORDERED: LORA-259 PO (15:12)
[2021-08-09 15:32] VITALS: BP 136/97
== END 2021-08-09 15:40 | disposition home or self-care (01) ==
LOC: ER 14:01
DX: F41.9 Anxiety disorder, unspecified (principal); F42.9 Obsessive-compulsive disorder, unspecified; Z20.822 Contact with and (suspected) exposure to COVID-19; Z86.16 Personal history of COVID-19
CPT/HCPCS: A4663

== ENCOUNTER 2021-08-11 09:00 | Inpatient (IN) | payer MEDICARE, OTHER ==
[~2021-08-11] VITALS: Ht 180.3 cm; Wt 92.1 kg
[~2021-08-11 09:00] MED LIST changes: -CLIN300C12 PO; +CLOM25CA2 PO; +LORA-259 PO; -SIMV10TA98 PO
--- NOTE | 2021-08-11 09:09 | NUR ---
MD@bedside, medical screening exam in progress.
[2021-08-11] MEDS ORDERED: LORAZEPAM 0.5 MG TABLET PO ONE ×2 (09:15→13:45)
[2021-08-11] MEDS ORDERED: LORAZEPAM 0.5 MG TABLET ONE ×2 (09:17→13:27)
--- NOTE | 2021-08-11 09:22 | NUR ---
A urinal & sterile cup for urine specimen are@bedside. Patient was notified re: urine & blood tests are ordered for him by the doctor. Breakfast tray was also provided.
--- NOTE | 2021-08-11 09:31 | NUR ---
Patient refused the regular hot breakfast tray, iced cold water and orange juice. Patient said that he only wanted cranberry juice. Cups of cranberry juice (no ice) were given to patient per patient's request.
--- NOTE | 2021-08-11 09:44 | NUR ---
[email or web address].
[2021-08-11 09:45] LABS: HEMATOCRIT 47.4 % (36.7-47.1); MEAN CORPUSCULAR VOLUME 93.7 fL (73.0-96.2); PLATELET COUNT (AUTO) 209 K/uL (152-348)
[2021-08-11 09:56] LABS: CARBON DIOXIDE 28 mmol/L (21-32); CHLORIDE 105 mmol/L (98-107); CREATININE 1.1 mg/dL (0.6-1.3); GLUCOSE 100 mg/dL (74-106); UREA NITROGEN, BLOOD 26 mg/dL (7-18)
[2021-08-11 10:02] LABS: ALANINE AMINOTRANSFERASE 22 U/L (16-63); ALKALINE PHOSPHATASE 81 U/L (50-136); BILIRUBIN,DIRECT 0.2 mg/dL (0.0-0.2); TOTAL PROTEIN, SERUM 7.5 g/dL (6.4-8.2)
[2021-08-11 10:04] LABS: ETHANOL < 3 MG/DL (0-0)
[2021-08-11 10:06] LABS: ACETAMINOPHEN < 2.0 ug/mL (10-30)
--- NOTE | 2021-08-11 10:17 | NUR ---
Patient was repeated asked to provide urine specimen for test.
[2021-08-11 10:18] LABS: ASPARTATE AMINOTRANSFERASE 21 U/L (15-37)
--- NOTE | 2021-08-11 10:24 | NUR ---
Patient is resting comfortably on gurney with eyes closed, still for urine specimen.
--- NOTE | 2021-08-11 10:35 | NUR ---
Social Work Clinical Note: Pt. is a 65-year-old male who was admitted to the ED on 08/11/2021 due to anxious behavior. Upon social work faculty member consultation, pt. is alert and oriented x4. Pt. presents with an anxious mood and pressured speech. Pt. appears unkempt and was cooperative throughout the interview. Pt. stated he has barely eaten in the past few days. Pt. stated he has not slept. Pt. stated he has not taken his medication. Pt. stated he cannot complete daily activities due to his mental health diagnosis. Pt. stated he is diagnosed with OCD. Pt. stated he wanted to be admitted to the mental health unit so he can sleep and take his medication. [facility] notified the crisis team to evaluate. SW will be available as needed. [facility] provided mental health resources for the pt and placed a copy in the patient's chart.
--- NOTE | 2021-08-11 11:25 | NUR ---
A bottle of cranberry juice and turkey sandwich were given to patient earlier per patient's request. Psych farmworker bulbs Lebron [email or web address].
--- NOTE | 2021-08-11 11:41 | NUR ---
Patient is medically cleared by Dr Lowery for psych admission.
[2021-08-11 12:27] LABS: *AMPHETAMINE, URINE NEGATIVE (NEGATIVE); *CANNABINOID, URINE NEGATIVE (NEGATIVE); *COCCAINE, URINE NEGATIVE (NEGATIVE); *OPIATE, URINE NEGATIVE (NEGATIVE); *PHENCYCLIDINE SCREEN,URINE NEGATIVE (NEGATIVE)
--- NOTE | 2021-08-11 12:27 | NUR ---
Hot lunch tray was provided with cranberry juice. Patient is now waiting for MHU assigned bed & nurse.
--- NOTE | 2021-08-11 13:08 | NUR ---
I attempted to give nursing SBAR to MHU staff Ingrid. "We still do not have a bed for this patient." per Ingrid. Nursing truck repair supervisor notified.
--- NOTE | 2021-08-11 13:15 | NUR ---
Patient said that he is feeling more anxious again, MD notified.
--- NOTE | 2021-08-11 13:46 | NUR ---
Patient refused the 2nd dose of po MD Justen notified.
[2021-08-11 14:00] VITALS: BP 154/80
--- NOTE | 2021-08-11 14:00 | NUR ---
GPS: Nursing Notes: Admitting Notes: Patient is admitting to MHU, per 5150 GD due to severe depression and anxiety, patient is so overwhelmed he cannot provide for his food, fci, or clothing nor taking his medications. On face to face assessment, patient is anxious, poor impulse control, stating "I am hearing voices now... They come and go..", hyperverbal at times, paranoid behavior, asking for socks when offer to him, states 'I don't want them.. I am obsessive compulsive...", pacing the hallway, evasive when question by staff, poor hygiene, malodorous, unkempt appearance, unable to formulate a viable plan for self care, oriented to the unit, admitting package with Patient's Right Handbook given to the patient, continue to monitor for safety, Dr. Carranza and Dr. Jhaveri were notified by charge nurse, continue with treatment plan.
[2021-08-11] MEDS ORDERED: MAG HYDROX/AL HYDROX/SIMETH 30 ML LIQUID UDC PO PRN (14:30)
[2021-08-11] MEDS ORDERED: BLOOD SUGAR DIAGNOSTIC 1 EACH STRIP VI ONE (14:30)
[2021-08-11] MEDS ORDERED: MAGNESIUM HYDROXIDE 30 ML LIQUID UDC PO PRN (14:30)
[2021-08-11 16:03] VITALS: BP 154/80
[2021-08-11] MEDS: CLONAZEPAM 0.5 MG TABLET PO PRN ×2 (16:41→22:44)
[2021-08-11] MEDS ORDERED: CLOM25CA2 PO (18:24)
[2021-08-11] MEDS ORDERED: LORA-259 PO (18:25)
[2021-08-11 20:00] VITALS: BP 137/76
[2021-08-11] MEDS: TEMAZEPAM 7.5 MG CAPSULE PO PRN (22:45)
--- NOTE | 2021-08-12 05:35 | NUR ---
GPS NOTES: Patient in bed sleeping upon initial interaction. No apparent distress noted. Patient compliant with medications. Patient Klonopin and Restoril as per patient requests. Patient slept most of the night. Safety strategies in place.
[2021-08-12 07:30] VITALS: BP 137/80
[2021-08-12 07:39] LABS: MEAN CORPUSCULAR HEMOGLOBIN 31.6 uug (23.8-33.4); MEAN CORPUSCULAR VOLUME 93.3 fL (73.0-96.2); PLATELET COUNT (AUTO) 185 K/uL (152-348)
[2021-08-12 07:42] LABS: POTASSIUM 3.9 mmol/L (3.5-5.1)
[2021-08-12] MEDS: QUETIAPINE FUMARATE 25 MG TABLET PO SCH (09:37)
[2021-08-12 16:00] VITALS: BP 114/66
--- NOTE | 2021-08-12 16:53 | NUR ---
Received patient sleeping in his room. A/O X 3 to person, place. Pt. is depressed, anxious, isolative, not engage in verbal approach, poor historian. Ambulates without assistance. Denies SI/HI AH/VH. Denies pain. Denies SOB. Pt. is encourage to verbalize concerns. Fall and safety precautions implemented.
[2021-08-12] MEDS: CLONAZEPAM 0.5 MG TABLET PO PRN (18:20)
[2021-08-12 20:00] VITALS: BP 115/75
[2021-08-12] MEDS: FLUVOXAMINE MALEATE 50 MG TABLET PO SCH (21:11)
[2021-08-12] MEDS: TEMAZEPAM 7.5 MG CAPSULE PO PRN (21:11)
[2021-08-13 08:00] VITALS: BP 119/80
[2021-08-13] MEDS: QUETIAPINE FUMARATE 25 MG TABLET PO SCH (09:05)
[2021-08-13] MEDS: CLONAZEPAM 0.5 MG TABLET PO PRN (11:21)
[2021-08-13] MEDS: ACETAMINOPHEN 325 MG TABLET PO PRN ×2 (11:21→16:39)
--- NOTE | 2021-08-13 11:26 | NUR ---
Gps/Ironmolder- Complained of lower back pain, offered tylenol 650 mg po, , claimed he has chronic lower back pain, repositioned self, rest back in bed. Verbalized feelings of being anxious, offered klonipin 1 mg po, will take at a later time , claimed he is worried taking klonopin and seroquel close together.
--- NOTE | 2021-08-13 15:51 | NUR ---
Attestation: Judy Stallworth, BUSINESS CENTER REPRESENTATIVE, ASW attest to the accuracy of the psychosocial done on July 29, 2021. On the admission for July 27, 2021, the patient was admitted to [facility], he was living alone located at [address] [place] [address]. Upon pts last admission on July 27, 2021, this commercial real estate underwriter contacted pts mother, Radha ([phone]) to discuss pts hospitalization at [facility]. Radha was aware and agreeable. Radha stated to this commercial real estate underwriter that she lives in [place] in an assisted living. During admission of July 27, 2021, pt Pt. was alert and oriented x4. Pt. presented anxious and congruent affect. Pt. presented with pressured speech and an illogical thought process. Pt was brought in due to complaints of not being able to function. Pt had reported complaints of OCD which paralyzed him and kept from eating, bathing, and sleeping per pt. Pt. appeared unkempt and was cooperative throughout the assessment. Pt. denied suicidal/homicidal ideation. Pt. denied visual and auditory hallucinations. Pt is ambulatory. Pt refused fpc facilities upon discharge to and continually stated he wants to discharge home upon discharge. Per nursing, pt did not discharge home by taxi and pt was discharged home by his own vehicle on 08/03/21 which was parked in the hospital parking lot. During this admission on 08/11/21, the 5150 hold states pt was brought in due to feeling overwhelmed. Per hold, Pt is anxious and depressed that he is not eating, bathing nor taking his medications. Pt is disheveled, he cannot function nor sleep. Pt cannot answer questions clearly due to his severe depression and anxiety. Pt is not taking his medications. Pt is so overwhelmed he cannot provide for food, senior living or clothing nor take his medications. During this writers social service assessment on 08/13/21, pt appeared alert and oriented x4. Pt was unable to have a proper conversation as he appeared in an anxious mood with circumstantial thought process. Pt denied substance use, pt denied suicidal and homicidal ideation, pt denied visual hallucination. Pt reported he hears voices but pt reported he does not recall further details. Pt reported he would like to go to a care home because he can no longer provide care for himself. Pt stated he feels depressed, and he has OCD. Pt is ambulatory. Pt stated he is only in contact by phone with his mother. Pt stated he continues to not talk to his 3 sisters and 1 brother. Pts speech appeared to remain pressured. Pt continuously stated, I need a care home to go to and live forever. VAHE stated to pt that she will work with the MD to provide fpc facility options for the pt upon discharge. VAHE will inform pt's motherRadha ([phone]) of updates and further discharge plan during pts admission at [facility].Pt is aware and agreeable with the discharge plan. VAHE will continue to work with pt, family and MD to ensure a safe and proper discharge plan.
[2021-08-13 16:00] VITALS: BP 105/66
[2021-08-13] MEDS ORDERED: CARISOPRODOL 350 MG TABLET PO PRN (16:00)
[2021-08-13] MEDS: CLONAZEPAM 1 MG TABLET PO PRN (18:06)
[2021-08-13 20:05] VITALS: BP 113/65
[2021-08-13] MEDS: TEMAZEPAM 7.5 MG CAPSULE PO PRN (20:48)
[2021-08-13] MEDS: FLUVOXAMINE MALEATE 50 MG TABLET PO SCH (20:48)
[2021-08-14 07:30] VITALS: BP 99/49
[2021-08-14] MEDS: QUETIAPINE FUMARATE 25 MG TABLET PO SCH (08:24)
--- NOTE | 2021-08-14 09:47 | NUR ---
[facility] Initial Discharge Note: Pt is admitted to [facility] on a 5150 hold for gravely disabled adult. Per pt, he would like to discharge to a nursing facility upon discharge as pt stated, "I cannot function at all." Pt's mother, Radha ([phone]) has been informed. Radha also stated she lives in a nursing facility out of state. Per pt, he is not in contact with his siblings. VAHE will continue to work with pt, mother and MD to ensure a safe and proper discharge plan.
[2021-08-14] MEDS: CLONAZEPAM 1 MG TABLET PO PRN (15:04)
[2021-08-14] MEDS: ACETAMINOPHEN 325 MG TABLET PO PRN (15:04)
[2021-08-14 16:34] VITALS: BP 104/49
--- NOTE | 2021-08-14 16:54 | NUR ---
Gps/Publishing Systems Analyst- Gps/Publishing Systems Analyst- Anxious, making his simple needs known to the staff, offered to shower , refused, claimed he's feeling tired , and has lower back pain. Offered prn tylenol 650 mg po. verbalized adequate relief. Somewhat guarded, encouraged to eat in the dinning room during the day.
[2021-08-14] MEDS: FLUVOXAMINE MALEATE 50 MG TABLET PO SCH (20:24)
[2021-08-14] MEDS: TEMAZEPAM 7.5 MG CAPSULE PO PRN (20:55)
[2021-08-14 22:25] VITALS: BP 108/59
[2021-08-15 07:30] VITALS: BP 107/70
[2021-08-15] MEDS: QUETIAPINE FUMARATE 25 MG TABLET PO SCH (08:25)
[2021-08-15] MEDS: CLONAZEPAM 1 MG TABLET PO PRN ×2 (09:22→16:07)
--- NOTE | 2021-08-15 10:07 | NUR ---
Gps/Lead Enterprise Architect- Claimed he's very anxious, he thinks seroquel and clonipin not working for him at this time. Encouraged to stay in the activity room during the day. not interacting with his peers, comes out of his room to ask for simple needs. Encouraged to shower and do give self good hygiene, patient claimed he's very tired and note feeling well, will tray at a later time. Patient needed prompting and encouragement, has poor initiation
[2021-08-15 16:00] VITALS: BP 111/70
[2021-08-15] MEDS: BENZTROPINE MESYLATE 0.5 MG TABLET PO SCH ×2 (16:27→16:34)
[2021-08-15] MEDS: FLUVOXAMINE MALEATE 50 MG TABLET PO SCH (20:27)
[2021-08-15] MEDS: TEMAZEPAM 7.5 MG CAPSULE PO PRN (20:33)
[2021-08-15 20:37] VITALS: BP 110/68
--- NOTE | 2021-08-16 06:54 | NUR ---
patient in his room awake. A&0x2. Patient is isolative and guarded. Stays most in the room. encouraged to shower and engage in activities, mary states "I don't feel good". patient compliant with medications. safety strategies in place.
[2021-08-16 07:30] VITALS: BP 100/66
[2021-08-16] MEDS: QUETIAPINE FUMARATE 25 MG TABLET PO SCH (08:25)
[2021-08-16] MEDS: BENZTROPINE MESYLATE 0.5 MG TABLET PO SCH ×2 (08:30→16:39)
--- NOTE | 2021-08-16 12:50 | NUR ---
Gps/Health Specialist- Showered self after set up, and with lots of encouragement and prompting, stayed in the dinning room during his lunch , went right back to his room after his meal.
[2021-08-16] MEDS: CLONAZEPAM 1 MG TABLET PO PRN ×2 (15:31→22:13)
[2021-08-16 16:00] VITALS: BP 103/60
[2021-08-16 20:00] VITALS: BP 105/66
[2021-08-16] MEDS: FLUVOXAMINE MALEATE 50 MG TABLET PO SCH (20:24)
[2021-08-16] MEDS: TEMAZEPAM 7.5 MG CAPSULE PO PRN (20:26)
--- NOTE | 2021-08-16 21:04 | NUR ---
Pt received sitting on bed in room. Pleasant upon approach. Able to make all needs known. Compliant with medications and care. Denies si at this time. Contract for safety. Administered sleeping medications as ordered per request.
[2021-08-17 08:00] VITALS: BP 102/67
[2021-08-17] MEDS: QUETIAPINE FUMARATE 25 MG TABLET PO SCH (08:56)
[2021-08-17] MEDS: BENZTROPINE MESYLATE 0.5 MG TABLET PO SCH ×2 (08:56→17:00)
[2021-08-17] MEDS: CLONAZEPAM 1 MG TABLET PO PRN (15:36)
--- NOTE | 2021-08-17 15:39 | NUR ---
GPS: Nursing Notes: Thought Disorder: Patient is awake and responding to her name, isolative and withdrawn in his room, denies AH/VH, stated "The medication is helping me out... I am not hearing voices now..", depressed mood and anxious affect, refusing to participate in therapeutic groups, low energy level, denies SI/HI, unable to formulate a viable plan for self care, continue to monitor for safety, continue with treatment plan.
[2021-08-17 16:39] VITALS: BP 91/56
[2021-08-17 20:45] VITALS: BP 105/62
[2021-08-17] MEDS: FLUVOXAMINE MALEATE 50 MG TABLET PO SCH (21:03)
[2021-08-17] MEDS: TEMAZEPAM 7.5 MG CAPSULE PO PRN (21:03)
--- NOTE | 2021-08-18 04:47 | NUR ---
patient sleeping in his room. A/O X 3 to person, place. patient is depressed anxious isolative, not engage in verbal approach, poor insight and judgement . Ambulates without assistance. Denies SI/HI AH/VH. Fall and safety precautions implemented.
[2021-08-18 08:00] VITALS: BP 95/56
[2021-08-18] MEDS: BENZTROPINE MESYLATE 0.5 MG TABLET PO SCH (08:37)
[2021-08-18] MEDS ORDERED: QUETIAPINE FUMARATE 25 MG TABLET PO SCH (09:00)
--- NOTE | 2021-08-18 13:52 | NUR ---
GPS: 9371 HEARING DONE WITH THE VICE PRESIDENT & GENERAL MANAGER [employer] AND PT RIGHT ADVOCATE. PER VICE PRESIDENT & GENERAL MANAGER [employer], PROBABLE CAUSE GRAVE DISABILITY IS APPROVED. PT STILL ISOLATIVE AND WITH OBSESSIVE COMPULSIVE BEHAVIOR AND INTRUSIVE AT TIMES. DOES NOT PARTICIPATE WITH GROUP THERAPY.
[2021-08-18 16:29] VITALS: BP 109/68
--- NOTE | 2021-08-18 19:00 | NUR ---
GPS: Pt in no acute distress.. Pt can make his needs known. Safety and comfort provided. Pt concerned regarding his Luvox medication. Will continue to monitor.
[2021-08-18 19:53] VITALS: BP 106/62
[2021-08-18] MEDS: TEMAZEPAM 7.5 MG CAPSULE PO PRN (21:34)
--- NOTE | 2021-08-18 21:34 | NUR ---
at 2134H Restoril 7.5 mg prn given for pt as per pt request. Pt tolerated it well. Will continue to monitor.
[2021-08-18] MEDS: CLONAZEPAM 1 MG TABLET PO PRN (23:33)
--- NOTE | 2021-08-18 23:33 | NUR ---
GPS: Klonopin 1mg given at 2333h for anxiety.Pt stated he is having trouble sleeping and fixated on his medication Luvox and Seroquel. Pt tolerated it well.Will continue to monitor.
--- NOTE | 2021-08-19 01:19 | NUR ---
GPS: Pt Klonopin effective. Pt is sleeping comfortably.
--- NOTE | 2021-08-19 06:17 | NUR ---
GPS: Pt slept 6 hours. Pt in no acute distress. Pt can make his needs known. Prescribed medication given and pt tolerated it well. Safety and comfort provided. All needs are met. Will endorse to incoming nurse for continuity of care.
[2021-08-19 07:30] VITALS: BP 102/66
[2021-08-19] MEDS: QUETIAPINE FUMARATE 25 MG TABLET PO SCH (08:26)
[2021-08-19] MEDS: FLUVOXAMINE MALEATE 50 MG TABLET PO SCH ×3 (08:28→21:00)
--- NOTE | 2021-08-19 15:53 | NUR ---
patient is remains isolative and withdrawn stay in his room at all time ,no interaction with other peers or staffs. encouraged patient to verbalizer his feeling and needs. pt compliant with all medication will continue close monitoring.
[2021-08-19 16:00] VITALS: BP 107/62
[2021-08-19 20:00] VITALS: BP 108/60
[2021-08-19] MEDS: TEMAZEPAM 7.5 MG CAPSULE PO PRN (21:36)
--- NOTE | 2021-08-19 21:37 | NUR ---
Patient refused to take the Lovux for HS, stated the medication didn't make him feel good and mentioned He should take Seroquel at am and Lovux at night. The order for Lovux is BID. Educated on the side effects and use of the medication,patient still refused. no distress identified, will continue to monitor.
[2021-08-19] MEDS: CLONAZEPAM 1 MG TABLET PO PRN (22:30)
--- NOTE | 2021-08-20 06:43 | NUR ---
No acute distress identified during the shift. No aggressive or combative behavior noted. Safety measures maintained. Will endorse to the next shift for continuity of care.
[2021-08-20 07:30] VITALS: BP 116/66
[2021-08-20] MEDS: QUETIAPINE FUMARATE 25 MG TABLET PO SCH (08:44)
--- NOTE | 2021-08-20 15:54 | NUR ---
GPS: PT ALERT AND VERBALLY RESPONSIVE. STAYS IN HIS ROOM, ISOLATIVE, READING BOOK. ENCOURAGED PT TO PARTICIPATE WITH GROUP THERAPY. PT DENIES PAIN OR DISCOMFORT. COOPERATIVE WITH CARE ANC COMPLIANT WITH MEDS. NO AGITATION AND NOT IN DISTRESS AT THIS TIME.
[2021-08-20 16:47] VITALS: BP 110/71
[2021-08-20] MEDS: CLONAZEPAM 1 MG TABLET PO PRN (18:16)
[2021-08-20 20:00] VITALS: BP 109/65
[2021-08-20] MEDS: FLUVOXAMINE MALEATE 50 MG TABLET PO SCH (20:31)
[2021-08-20] MEDS: TEMAZEPAM 7.5 MG CAPSULE PO PRN (20:44)
[2021-08-21] MEDS: CLONAZEPAM 1 MG TABLET PO PRN ×2 (00:17→16:01)
[2021-08-21 07:30] VITALS: BP 97/58
[2021-08-21] MEDS: QUETIAPINE FUMARATE 25 MG TABLET PO SCH ×2 (08:15→08:19)
[2021-08-21 15:51] VITALS: BP 112/62
[2021-08-21] MEDS: MIRTAZAPINE 15 MG TABLET PO SCH (20:21)
[2021-08-21 20:29] VITALS: BP 123/75
--- NOTE | 2021-08-21 20:30 | NUR ---
GPS: Pt.is anxious,paranoid and thinks the Remeron med.he just got is not the right pill. Claims that usually med.is colored green. Explained that maybe it's from a different glass cleaning machine tender. Frequent re-assurance given. Will continue to monitor.
--- NOTE | 2021-08-22 01:39 | NUR ---
GPS: Pt.asleep at this time during rounds. Breathing easy and unlabored. Fall precautions observed. Will continue to monitor.
--- NOTE | 2021-08-22 06:30 | NUR ---
GPS: Pt.slept 7.45 last night. Less anxious,paranoid and suspicious at this time. Re-assured prn. Will continue to monitor.
[2021-08-22 07:47] LABS: CREATININE 1.1 mg/dL (0.6-1.3); POTASSIUM 4.2 mmol/L (3.5-5.1)
[2021-08-22 08:13] VITALS: BP 106/68
--- NOTE | 2021-08-22 10:03 | NUR ---
Firearms Report: Autotransfusionist completed and submitted a DOJ firearms report for 5150 grave disability certifications. A copy of report has been placed in patient chart.
[2021-08-22 16:47] VITALS: BP 121/78
[2021-08-22] MEDS: CLONAZEPAM 1 MG TABLET PO PRN (17:30)
[2021-08-22 20:00] VITALS: BP 111/83
[2021-08-22] MEDS: MIRTAZAPINE 15 MG TABLET PO SCH (20:02)
[2021-08-23 08:41] VITALS: BP 107/66
[2021-08-23] MEDS: CLONAZEPAM 1 MG TABLET PO PRN ×2 (09:40→15:48)
--- NOTE | 2021-08-23 16:04 | NUR ---
Received patient is anxious and pressure speech needy at times. Re-assured as needed. withdrawn and isolative stay in his room at all time Encouraged to get out of his room more and attend groups of choice. Denies any SI/HI. Will continue to monitor.
[2021-08-23 16:41] VITALS: BP 121/68
[2021-08-23 20:17] VITALS: BP 116/64
[2021-08-23] MEDS: MIRTAZAPINE 15 MG TABLET PO SCH (21:22)
--- NOTE | 2021-08-24 06:59 | NUR ---
GPS: Pt.slept 7.30 last night. Still paranoid,suspicious and needing frequent re-assurance from staff. Denies wanting to harm self. Encouraged to interact with his peers more. Will continue to monitor.
[2021-08-24 07:35] VITALS: BP 108/65
[2021-08-24] MEDS: CLONAZEPAM 1 MG TABLET PO PRN (11:24)
[2021-08-24 16:47] VITALS: BP 113/73
--- NOTE | 2021-08-24 18:05 | NUR ---
patient is AAO x4,anxious and pressure speech needy at times. easily get irritable loud and paranoid ,Re-assured as needed. withdrawn and isolative stay in his room at all time Encouraged to get out of his room more and attend groups of choice. Denies any SI/HI. Will continue to monitor.
[2021-08-24] MEDS: ACETAMINOPHEN 325 MG TABLET PO PRN (18:50)
[2021-08-24 19:51] VITALS: BP 112/64
[2021-08-24] MEDS: MIRTAZAPINE 15 MG TABLET PO SCH (20:32)
--- NOTE | 2021-08-24 23:32 | NUR ---
Patient is alert/oriented x 4.Patient is received in bed reading a book.Patient is needy at times. easily irritable loud and paranoid ,Re-assured as needed withdrawn and isolative to his room. Encouraged patient to interact with peers and join activities/group. Patient denies any SI/HI. Safety measures rendered, bed in lowest position, bed locked, and bed alarm on while in bed. Patient is complaint with medication.
[2021-08-25] MEDS: TEMAZEPAM 7.5 MG CAPSULE PO PRN (01:43)
[2021-08-25 07:30] VITALS: BP 98/53
[2021-08-25] MEDS: CLONAZEPAM 1 MG TABLET PO PRN ×2 (10:47→16:34)
[2021-08-25 15:31] VITALS: BP 113/67
--- NOTE | 2021-08-25 15:46 | NUR ---
Received patient is AAO x4,anxious and pressure speech needy at times. easily get irritable Re-assured as needed. patieny stay in his room reading a book withdrawn and isolative stay in his room at all time Encouraged to get out of his room more and attend groups of choice. Denies any SI/HI. Will continue to monitor.
[2021-08-25 19:54] VITALS: BP 116/80
[2021-08-25] MEDS: MIRTAZAPINE 15 MG TABLET PO SCH (21:57)
--- NOTE | 2021-08-26 05:09 | NUR ---
Received patient seated a the dining area, patient calm, cooperative with medications, patient slept well, no behavioral problem noted at this time, cont to monitor.
[2021-08-26 07:30] VITALS: BP 110/67
[2021-08-26] MEDS: CLONAZEPAM 1 MG TABLET PO PRN ×2 (12:42→20:35)
--- NOTE | 2021-08-26 12:44 | NUR ---
GPS: PT ANXIOUS WENT TO STATION REQUESTING KLONOPIN. PT TOLERATED WELL.
--- NOTE | 2021-08-26 15:00 | NUR ---
Pt. is A/O X 2 -3 to person, place. Pt. is anxious, restless, isolative, cooperative. Klonopin 1 mg was given at 12:42 for anxiety, effective. Denies SI/HI AH/VH. Emotional support provided. Fall and safety precautions implemented.
[2021-08-26 16:00] VITALS: BP 122/71
[2021-08-26 20:00] VITALS: BP 126/80
[2021-08-26] MEDS: MIRTAZAPINE 15 MG TABLET PO SCH (20:35)
--- NOTE | 2021-08-27 06:10 | NUR ---
This patient was seeking his PRN Klonopin last night. Very anxious and was hovering around the station. A shower was offered, but this patient refused again. There is a plan to discharge the patient this am. Total sleep hours were 7.30. Safety stratiges are in place.
[2021-08-27 07:30] VITALS: BP 108/63
--- NOTE | 2021-08-27 09:20 | NUR ---
SW Discharge Note: Pt will be discharged to [facility] [address] [place] [address] ([phone]) via Ambulance transportation at 11AM. SW spoke with admin coordinator, Jyoti at the facility who states they are ready to accept the patient today. Pt is aware and agreeable with discharge plans. Pt stated he does not speak to his siblings. Pts mother, Radha ([phone]) is aware of the discharge plan. Pt asked SW to not call his siblings or mother going forward and stated only pt will talk to them. Pt is alert and oriented x4, is unable to plan for self-care at this time; however, is willing to accept care at SNF. Pt denies any suicidal or homicidal ideation. Pt will follow-up at the facility with Psychiatrist, Dr. Carranza and Head Of Training And Development, Dr. Fragoso. Pt presents with calm mood and congruent affect. PHARMACY: [facility] ([phone] [address] [facility] [address].
--- NOTE | 2021-08-27 12:30 | NUR ---
Discharged patient to [facility]. Report given to ALEKS Pablo. patient signed belonging list, firearm prohibition, dc instructions given and signed. No acute distress identified. Skin intact. Patient is alert/orientedx4, ambulatory. The patient denies SI/HI. Denies pain.
== END 2021-08-27 12:30 | DRG 885 ==
LOC: ER 09:00 → GPS 13:42
PROVIDERS: ADMIT Nurse Practitioner Psychiatric/Mental Health; ATTEND Nurse Practitioner Acute Care
DX: F25.9 Schizoaffective disorder, unspecified (principal); F42.9 Obsessive-compulsive disorder, unspecified; F41.9 Anxiety disorder, unspecified; Z79.899 Other long term (current) drug therapy; Z20.822 Contact with and (suspected) exposure to COVID-19; G47.00 Insomnia, unspecified; F32.9 Major depressive disorder, single episode, unspecified; Z73.6 Limitation of activities due to disability; F29 Unspecified psychosis not due to a substance or known physiological condition; M54.9 Dorsalgia, unspecified; R79.89 Other specified abnormal findings of blood chemistry; R51.9 Headache, unspecified
CPT/HCPCS: 36415; 85025; 93005; 97161; A4663; G0480

== ENCOUNTER 2021-09-06 07:54 | Inpatient (IN) | payer MEDICARE, OTHER ==
[~2021-09-06] VITALS: Ht 180.3 cm; Wt 86.2 kg
[2021-09-06] MEDS ORDERED: LORAZEPAM 0.5 MG TABLET PO ONE (08:15)
[2021-09-06] MEDS ORDERED: LORAZEPAM 1 MG TABLET ONE (08:16)
--- NOTE | 2021-09-06 08:19 | NUR ---
DR HANDLEY AT BEDSIDE FOR EVALUATION.
[2021-09-06 08:29] LABS: HEMATOCRIT 47.1 % (36.7-47.1); MEAN CORPUSCULAR HEMOGLOBIN 31.9 uug (23.8-33.4); MEAN CORPUSCULAR VOLUME 92.5 fL (73.0-96.2); PLATELET COUNT (AUTO) 247 K/uL (152-348)
[2021-09-06] MEDS ORDERED: LORAZEPAM 0.5 MG TABLET PO PRN (08:30)
--- NOTE | 2021-09-06 09:47 | NUR ---
PT WAS EVALUATED BY DR HANDLEY AND BY CRISIS WIRE PULLER PRAFUL. PT WAS PLACED ON 51/50 HOLD GRAVELY DISABLED.
[2021-09-06] MEDS ORDERED: LORAZEPAM 0.5 MG TABLET ONE (09:51)
[2021-09-06 10:01] LABS: CREATININE 1.2 mg/dL (0.6-1.3); POTASSIUM 3.7 mmol/L (3.5-5.1)
[2021-09-06 10:09] LABS: *AMPHETAMINE, URINE NEGATIVE (NEGATIVE); *CANNABINOID, URINE NEGATIVE (NEGATIVE); *COCCAINE, URINE NEGATIVE (NEGATIVE); *OPIATE, URINE NEGATIVE (NEGATIVE); *PHENCYCLIDINE SCREEN,URINE NEGATIVE (NEGATIVE)
[2021-09-06] MEDS ORDERED: CLOM25CA2 PO (11:06)
[2021-09-06] MEDS ORDERED: MIRT-93 PO (11:06)
--- NOTE | 2021-09-06 11:09 | NUR ---
REPORT WAS GIVEN TO RN MHU. PT WAS TRANSFERED TO [facility] ROOM #[id number].
--- NOTE | 2021-09-06 11:15 | NUR ---
Admitted a case of 65 years old male from [facility] previously diagnosed with Psychosis NOS. Patient is on 5150 status. Patient arrived in a wheel chair. On admission patient was cooperative to physical assessment and vital signs. Skin body assessment revealed no significant skin integrity breakdown. Patient is bladder and bowel continent. Vital signs within normal limits. Patient ambulates independently. Upon face to face patient appeared alert, oriented to person and place, redirectable, cooperative. Patient denies SI/HI AH/VH. Pt. signed and consented to all admission documents. Patient was offered brief orientation to unit rules and policies and given a copy of patient's rights handbook. Patient belongings were accounted and contrabands removed. Psychiatrist Dillon and PARK SUPERINTENDENT Oralia Leo were informed and orders were carried out. Patient is free from pain or any discomfort. Emotional support provided. Fall and safety precautions implemented.
[2021-09-06] MEDS ORDERED: MAG HYDROX/AL HYDROX/SIMETH 30 ML LIQUID UDC PO PRN (11:30)
[2021-09-06] MEDS ORDERED: MAGNESIUM HYDROXIDE 30 ML LIQUID UDC PO PRN (11:30)
[2021-09-06] MEDS ORDERED: ACETAMINOPHEN 325 MG TABLET PO PRN (11:30)
[2021-09-06] MEDS: LORAZEPAM 1 MG TABLET PO PRN ×2 (15:32→20:22)
[2021-09-06 16:00] VITALS: BP 112/67
--- NOTE | 2021-09-06 16:52 | NUR ---
Ativan 1 mg is given at 15:33 for anxiety, will be monitored for effectiveness.
[2021-09-06 19:45] VITALS: BP 114/71
[2021-09-06] MEDS: TEMAZEPAM 7.5 MG CAPSULE PO PRN (21:38)
[2021-09-07 09:43] VITALS: BP 109/65
[2021-09-07] MEDS: LORAZEPAM 1 MG TABLET PO PRN ×3 (10:42→23:06)
--- NOTE | 2021-09-07 13:23 | NUR ---
GPS: Nursing Notes: Thought Disorder: Patient is awake and responding to his name, gets easily anxious when redirected, poor impulse control, stated "I have OCD.. I cannot take care of myself..", unable to formulate a viable plan for self care, depressed mood and anxious affect, feeling overwhelmed about his situation, malodorous, unkempt appearance, refusing to shower, internally preoccupied, continue to monitor for safety, continue with treatment plan.
--- NOTE | 2021-09-07 14:20 | NUR ---
Firearms Report: Operations Processor completed and submitted a DOJ firearms report for 5150 grave disability certifications. A copy of report has been placed in patient chart.
[2021-09-07 18:07] VITALS: BP 109/58
[2021-09-07] MEDS: TEMAZEPAM 7.5 MG CAPSULE PO PRN (20:55)
[2021-09-07] MEDS ORDERED: HALOPERIDOL 0.5 MG TABLET PO SCH (21:00)
[2021-09-07] MEDS ORDERED: HALOPERIDOL 2 MG TABLET PO SCH (21:00)
[2021-09-07 23:25] VITALS: BP 114/70
--- NOTE | 2021-09-08 05:02 | NUR ---
GPS NOTES: patient remain isolated and withdrawn. Patient A&0x2. Patient only comes out of his room to ask for scheduled PRN medications. Patient encourage to shower but refused. Easily gets irritated when being redirected and educated on the importance of good hygiene. Poor impulse control. Patient to be on hyperverbal state if demands of PRN's medications are not met on time. Patient tends to be argumentative in the matter. Patient encourage to interact more and verbalize feelings, Patient will state "I'm tired". Patient closely monitored for any sudden mood change, safety strategies left in place.
[2021-09-08 08:41] VITALS: BP 109/66
[2021-09-08] MEDS ORDERED: risperiDONE 0.25 MG TABLET PO SCH ×2 (09:00)
[2021-09-08] MEDS: risperiDONE 0.5 MG TABLET PO SCH (09:37)
--- NOTE | 2021-09-08 10:46 | NUR ---
GPS: Nursing Notes: Thought Disorder: Patient is awake and responding to his name, A/Ox4, manipulative behavior, saying one thing to one staff and another thing to another staff, argumentative with his medication, explained the pros and cons, but continue to argue, stated "I want the doctor to change my medication..", poor impulse control, overly demanding at times, redirected, but gets easily anxious and angry toward staff and talking overly staff, unable to formulate a viable plan for self care, continue to monitor for safety, continue with treatment plan.
[2021-09-08] MEDS: CLONAZEPAM 1 MG TABLET PO PRN ×2 (12:00→18:10)
--- NOTE | 2021-09-08 15:53 | NUR ---
GPS: Nursing Notes: 5250 Hold: Patient has been placed on 5250, staff gave a copy of 5250 to patient. Explained 5250 and patient verbalized understanding, patient was informed that within four days a certification review hearing will be done. staff used [facility] portal to request a 5250 hearing, continue with treatment plan.
[2021-09-08 16:00] VITALS: BP 117/69
--- NOTE | 2021-09-08 16:21 | NUR ---
ATTESTATION: IJudy, PATIENT SERVICE REP, ASW attest to the accuracy of the attestation done on August 13, 2021. [facility], pt appeared alert and oriented x4. Pt was unable to have a proper conversation as he appeared in an anxious mood with circumstantial thought process. Pt denied substance use, pt denied suicidal and homicidal ideation, pt denied visual hallucination. Pt reported he hears voices but pt reported he does not recall further details. Pt reported he would like to go to a fdc because he can no longer provide care for himself. Pt stated he feels depressed, and he has OCD. Pt is ambulatory. Pt stated he is only in contact by phone with his mother. Pt stated he continues to not talk to his 3 sisters and 1 brother. Pts speech appeared to remain pressured. Pt continuously stated, I need a fdc to go to and live forever. SW stated to pt that she will work with the MD to provide custodial facility options for the pt upon discharge. SW will inform pt's motherRadha ([phone]) of updates and further discharge plan during pts admission at [facility]. Pt is aware and agreeable with the discharge plan. SW will continue to work with pt, family and MD to ensure a safe and proper discharge plan. During this admission on September 06, 2021, pt is alert and oriented x4. Pt continues to appear with anxious behavior, and rapid speech. Pt stated he continues to feel depressed and needs help. Pt requires constant redirection during [id number] assessment and discussion. Pt appears to become anxious and verbally repetitive. Pt stated he left [facility] located at [address] [place] [phone] ([phone]) that the pt was safely discharged to on August 13, 2021. Pt stated it was a loud place and he didnt feel right so he left home. Pt denies current suicidal and homicidal ideation and stated no attempts. Pt denies hx and current substance use. Pt denies physical, emotional, verbal and sexual abuse. Pt stated to SW to not call his mother or any family members. Pt stated he is in contact with them and does not want the SW to contact anyone. Pt denies visual hallucination, however pt stated, There is this song that wont stop playing in my ear. SW asked pt to elaborate and pt stated, No I dont want to talk to about it its scary stuff. Pt refused to further discuss, however pt did answer Yes. to this science writer when VAHE asked if the pt currently hears the music. Pt also stated this is the only auditory hallucination pt is experiencing. Pt stated to this SW, I still need help I cant take care of myself. VAHE stated this science writer will work with the MD to help to find another custodial facility that the pt will feel more comfortable at for continuation of care. Pt stated, Yes please I would like help with another one. Pt stated I need I want a change in medication because I dont like how I feel with my current meds. VAHE informed pt that this science writer will relay the pts request to the MD and MD will further discuss with the pt. VAHE will continue to work with pt and MD to ensure a safe and proper discharge plan. VAHE will continue to follow-up with the pt regarding possible decision changes for family contact with pts family during his admission.
[2021-09-08] MEDS: BENZTROPINE MESYLATE 0.5 MG TABLET PO SCH (17:13)
[2021-09-08] MEDS: TEMAZEPAM 7.5 MG CAPSULE PO PRN (21:08)
[2021-09-09 08:43] VITALS: BP 123/70
[2021-09-09] MEDS: risperiDONE 0.5 MG TABLET PO SCH (08:45)
[2021-09-09] MEDS: BENZTROPINE MESYLATE 0.5 MG TABLET PO SCH (08:45)
[2021-09-09] MEDS: HALOPERIDOL 2 MG TABLET PO SCH (09:20)
[2021-09-09] MEDS: CLONAZEPAM 1 MG TABLET PO PRN ×3 (10:20→23:41)
--- NOTE | 2021-09-09 10:25 | NUR ---
Patient is given Klonopin 1 mg for anxiety, will be monitored for effectiveness.
--- NOTE | 2021-09-09 14:18 | NUR ---
Received patient sleeping in his room. A/O X 2 -3 to person, place. Pt. is restless, anxious, argumentative, selective with medications, demanding. Ambulates independently. Denies SI/HI AH/VH, pain, SOB. Emotional support provided. Fall and safety precautions implemented.
[2021-09-09 16:00] VITALS: BP 119/72
--- NOTE | 2021-09-09 17:18 | NUR ---
Patient is given Klonopin 1 mg for anxiety, will be monitored for effectiveness.
[2021-09-09 19:41] VITALS: BP 120/72
[2021-09-09] MEDS: TEMAZEPAM 7.5 MG CAPSULE PO PRN (22:09)
[2021-09-10 08:08] VITALS: BP 126/79
[2021-09-10] MEDS: HALOPERIDOL 2 MG TABLET PO SCH (08:52)
[2021-09-10] MEDS: CLONAZEPAM 1 MG TABLET PO PRN ×2 (11:30→21:06)
--- NOTE | 2021-09-10 15:45 | NUR ---
Gps/Unload Associate- Offered to shower, refused at this time, claimed feelings cold, will think about it. Stayed in his room during the day m encouraged participation in his group. Coemes out of his room to ask for his simple needs.
[2021-09-10 16:21] VITALS: BP 108/61
[2021-09-10 20:00] VITALS: BP 124/79
[2021-09-10] MEDS: TEMAZEPAM 7.5 MG CAPSULE PO PRN (21:53)
--- NOTE | 2021-09-11 06:19 | NUR ---
Received patient at the start of the shift , needy. Asking for all kinds of things and acting impatient and initialed. Asked staff to call his mother at a late hour. Manipulative with selective hearing. Patient refuses to shower or do anything he is asked . Sleep hours were 7.15. Safety stratiges are in place. Medication seeking at times.
[2021-09-11 07:37] VITALS: BP 118/58
--- NOTE | 2021-09-11 08:40 | NUR ---
[facility] Discharge Update: Pt will be discharged to a chcf facility upon discharge. Pt is aware and agreeable to a SNF as he states he needs help because he cannot live on his own. MD is aware and SW will continue to work with pt and MD for a safe and proper discharge plan. Pt stated to SW that he does not want staff to contact his family as he is in touch with them.
[2021-09-11] MEDS: HALOPERIDOL 2 MG TABLET PO SCH (09:04)
--- NOTE | 2021-09-11 10:42 | NUR ---
[address]. pt will remain on hold for grave disability ground. pt made aware. family notified.
[2021-09-11] MEDS: CLONAZEPAM 1 MG TABLET PO PRN ×2 (12:45→21:22)
[2021-09-11] MEDS: GLUCERNA SHAKE VANILLA 237 ML CAN PO SCH (13:30)
--- NOTE | 2021-09-11 16:00 | NUR ---
Gps/Fire Pot Operator- Patient showered self ind. after set up . Remains isolative, and tends to close his door, discouraged from closing his door.
[2021-09-11 16:44] VITALS: BP 124/62
[2021-09-11 21:49] VITALS: BP 109/70
[2021-09-11] MEDS: TEMAZEPAM 7.5 MG CAPSULE PO PRN (22:32)
[2021-09-12 08:01] VITALS: BP 97/64
[2021-09-12] MEDS: HALOPERIDOL 2 MG TABLET PO SCH (09:06)
[2021-09-12] MEDS: GLUCERNA SHAKE VANILLA 237 ML CAN PO SCH (09:08)
--- NOTE | 2021-09-12 10:59 | NUR ---
Gps/Marketing Graphics Specialist- Remains isolative, staying in his room in bed, and kept closing his door, discouraged patient from closing his door . Demands on his needs..Encouraged to stay in the dinning room during meals. Appears to be aloft,anxious .
[2021-09-12] MEDS: CLONAZEPAM 1 MG TABLET PO PRN ×2 (14:45→21:44)
[2021-09-12 16:07] VITALS: BP 102/65
[2021-09-12 20:00] VITALS: BP 115/65
[2021-09-12] MEDS: TEMAZEPAM 7.5 MG CAPSULE PO PRN (22:54)
--- NOTE | 2021-09-13 05:59 | NUR ---
Received patient at start of the shift in his room with the door closed. The patient continues to keep the door shut despite being asked to leave it open . The patient is argumentative, complaining about having a roommate, wanting food now and medications " Now ". No situational awareness or consideration for the unit rules, peers or the staff. Other than coming out to the station to demand something, this patient stays in bed all day and night. Total sleep hours are 7.30.
[2021-09-13 07:38] VITALS: BP 94/58
[2021-09-13] MEDS: GLUCERNA SHAKE VANILLA 237 ML CAN PO SCH (08:46)
[2021-09-13] MEDS: HALOPERIDOL 2 MG TABLET PO SCH (08:46)
[2021-09-13] MEDS: CLONAZEPAM 1 MG TABLET PO PRN ×2 (11:05→21:13)
--- NOTE | 2021-09-13 12:04 | NUR ---
Gps/Wedger- Patient gets upset when informed his his haldol was increased to 5 mg po daily, claimed his gait already gets unsteady , does not need increased dose of haldol. Instructed the need for him to get out of his room eat meals in the dinning room.
[2021-09-13 16:08] VITALS: BP 115/75
[2021-09-13 20:10] VITALS: BP 124/71
[2021-09-13] MEDS: TEMAZEPAM 7.5 MG CAPSULE PO PRN (22:10)
--- NOTE | 2021-09-14 06:27 | NUR ---
Patient up during the night complaining about having a roommate. This patient has little to no situational awareness, and is not an active listener. The patient is argumentative about medications and demanding, exhibiting zero patience. Sleep hours were 5.00, even with the roommate removed from the room for most of the night. It is reported that the patient spends most of the day in his bed and has very little interaction with his peers.
[2021-09-14 08:04] VITALS: BP 104/66
[2021-09-14] MEDS: BENZTROPINE MESYLATE 0.5 MG TABLET PO PRN (08:40)
[2021-09-14] MEDS: GLUCERNA SHAKE VANILLA 237 ML CAN PO SCH (08:41)
[2021-09-14] MEDS ORDERED: HALOPERIDOL 5 MG TABLET PO SCH (09:00)
--- NOTE | 2021-09-14 15:29 | NUR ---
received patient is awake and responding to his name, A/Ox4, manipulative behavior, argumentative with his medication, explained the pros and cons, but continue to argue, stated "I want talk to doctor to change my medication..", poor impulse control, overly demanding at times, redirected, but gets easily anxious and angry toward staff and talking overly staff, unable to formulate a viable plan for self care, continue to monitor for safety, continue with treatment plan.
[2021-09-14 16:19] VITALS: BP 105/72
[2021-09-14 19:41] VITALS: BP 112/64
[2021-09-14] MEDS: CLONAZEPAM 1 MG TABLET PO PRN (20:43)
[2021-09-14] MEDS: TEMAZEPAM 7.5 MG CAPSULE PO PRN (22:57)
[2021-09-15 07:30] VITALS: BP 101/59
[2021-09-15] MEDS: HALOPERIDOL 2 MG TABLET PO SCH (08:50)
[2021-09-15] MEDS: BENZTROPINE MESYLATE 0.5 MG TABLET PO PRN (08:50)
[2021-09-15] MEDS: GLUCERNA SHAKE VANILLA 237 ML CAN PO SCH (08:50)
[2021-09-15] MEDS ORDERED: HALOPERIDOL 5 MG TABLET PO SCH (09:00)
[2021-09-15 15:27] VITALS: BP 99/61
[2021-09-15 19:50] VITALS: BP 112/58
--- NOTE | 2021-09-15 20:30 | NUR ---
received patient in his room in bed. He is noted A/O x 2. He is noted preoccupied with his medication, he stated, "I think I am taking too much haldol. I don't want to take any sleeping medication because is too much". patient is reassured about his medication regiment. V/S are stable. patient in no distress. PO fluid and snacks were provided. He is reassured for his safety. Safety and fall precaution are in place. will continue to monitor.
[2021-09-16 07:30] VITALS: BP 112/70
[2021-09-16] MEDS: HALOPERIDOL 2 MG TABLET PO SCH (09:00)
[2021-09-16] MEDS: GLUCERNA SHAKE VANILLA 237 ML CAN PO SCH (09:01)
--- NOTE | 2021-09-16 14:45 | NUR ---
GPS: RECEIVED PT TODAY. ALERT AND ORIENTED TO PLACE. PT DENIES ANY PAIN OR DISCOMFORT. PT SEEN PACING ON THE HALLWAY, WITH OBSESSIVE COMPULSIVE BEHAVIOR AT TIMES. PT IS GUARDED TO SELF AND WITH POOR INTERACTION WITH OTHER PT. OBSERVES PT BEING ALONE, DEPRESSED, ISOLATIVE IN THE ROOM. NO AGITATION AT THIS TIME. COMPLIANT WITH CARE AND MEDS.
[2021-09-16 16:00] VITALS: BP 109/69
[2021-09-16 20:00] VITALS: BP 125/77
[2021-09-16] MEDS: MIRTAZAPINE 15 MG TABLET PO SCH (20:41)
[2021-09-16] MEDS: TEMAZEPAM 7.5 MG CAPSULE PO PRN (22:58)
--- NOTE | 2021-09-17 06:05 | NUR ---
PT SLEPT 8.45 HOURS. NO ANXIETY NOTED.
[2021-09-17 07:37] VITALS: BP 110/62
[2021-09-17] MEDS: GLUCERNA SHAKE VANILLA 237 ML CAN PO SCH (09:00)
--- NOTE | 2021-09-17 16:45 | NUR ---
Gps/Pulling Machine Operator- Stayed in the activity room most of the afternoon ..Patient was able to talked to Tug Master about discharge plan . Possible discharge tuesday instead as noted .
[2021-09-17 17:06] VITALS: BP 148/77
[2021-09-17 20:00] VITALS: BP 116/60
[2021-09-17] MEDS: MIRTAZAPINE 15 MG TABLET PO SCH (20:24)
[2021-09-17] MEDS: TEMAZEPAM 7.5 MG CAPSULE PO PRN (21:45)
--- NOTE | 2021-09-18 04:16 | NUR ---
Received patient in his room with the door shut . This gag writer has asked the patient multiple times to leave the door open but the patient will not comply. The patient has selective hearing. He was anxious about his Remeron tonight, and insisted this gag writer stop whatever she is doing and to give him the medication " now". At the that time, it was not due for another hour, regardless, the patient became again argumentative and demanding.This patient continues to refuse to shower, despite being malodorous. The only time the patient took a shower since admission, he insisted on putting his dirty cloths on afterwards. Safety Stratiges in place and monitoring for compliance.
[2021-09-18 07:43] VITALS: BP 108/99
[2021-09-18] MEDS: GLUCERNA SHAKE VANILLA 237 ML CAN PO SCH (09:00)
--- NOTE | 2021-09-18 14:33 | NUR ---
Gps/Pattern Clerk- Tends to stay in bed with his door closed. Encouraged participation in his group therapy. Gets anxious , offered and encouraged to shower. Worried look , stands by the Nurses station until his needs met. Get argumentative when being redirected.
[2021-09-18 16:00] VITALS: BP 99/76
--- NOTE | 2021-09-18 20:30 | NUR ---
RECEIVED PATIENT IN THE HALLWAY. HE IS NOTED A/O X 3. HE IS NOTED PREOCCUPIED WITH HIS MEDICATION REGIMENT. HIS MOOD IS LOW. HOWEVER, HE IS LESS WITHDRAWN AND LESS ISOLATIVE. HIS AFFECT IS BLUNTED. PATIENT NEEDS REASSURANCE. HE DENIED SI/HI//AH AND HE IS ABLE TO VERBALLY. V/S STABLE. PT IN NO DISTRESS. HE WAS GIVEN PO FLUIDS AND SNACKS. SAFETY AND FALL PRECAUTION ARE IN PLACE. HE IS REASSURED FOR HER SAFETY. WILL CONTINUE TO MONITOR Q15 MIN CHECKS PER UNIT PROTOCOL.
[2021-09-18] MEDS: ATORVASTATIN 10 MG TABLET PO SCH (20:32)
[2021-09-18] MEDS: MIRTAZAPINE 15 MG TABLET PO SCH (20:32)
[2021-09-18 20:37] VITALS: BP 107/67
[2021-09-18] MEDS: TEMAZEPAM 7.5 MG CAPSULE PO PRN (22:30)
[2021-09-19] MEDS: GLUCERNA SHAKE VANILLA 237 ML CAN PO SCH (08:14)
[2021-09-19 08:30] VITALS: BP 96/57
[2021-09-19] MEDS: CLONAZEPAM 1 MG TABLET PO PRN (11:21)
--- NOTE | 2021-09-19 12:06 | NUR ---
GPS: Nursing Notes: Thought Disorder: Patient is awake and responding to his name, impaired judgment, isolative in his room, no interactions with peers, refusing to shower, gets easily anxious and irritable when redirected, refusing to participate in therapeutic groups, withdrawn in his room, anxious affect, unable to formulate a viable plan for self care, unkempt appearance, resistant with nursing care, continue with treatment plan.
[2021-09-19 16:02] VITALS: BP 113/82
[2021-09-19 20:00] VITALS: BP 114/71
--- NOTE | 2021-09-19 20:30 | NUR ---
RECEIVED PATIENT IN HIS ROOM IN BED. HE IS NOTED A/O X 3. HE CONTINUE RUMINATING ON HIS MEDICATION REGIMENT, HE IS HYPERVERBAL AND ANXIOUS. HE STATED, "WHAT WILL CALM ME DOWN BETTER? KLONOPIN OR ATIVAN? ARE THERE DIFFERENT TYPES OR REMERON, SOME ARE DIFFERENT COLORS. CAN YOU CHECKS TO SEE WHAT OTHER COLORS OF REMERON YOU HAVE?" HE IS INTRUSIVE, DEMANDING AND EASILY IRRITABLE. PATIENT REQUIRED MULTIPLE REASSURANCE AND REDIRECTIONS. HE DENIED SI/HI//AH HE IS ABLE TO VERBALLY CFS. V/S STABLE. PT IN NO DISTRESS. HE WAS GIVEN PO FLUIDS AND SNACKS. SAFETY AND FALL PRECAUTIONS ARE IN PLACE. HE IS REASSURED FOR HIS SAFETY. WILL CONTINUE TO MONITOR Q15 MIN CHECKS PER UNIT PROTOCOL.
[2021-09-19] MEDS: MIRTAZAPINE 15 MG TABLET PO SCH (20:54)
[2021-09-19] MEDS: ATORVASTATIN 10 MG TABLET PO SCH (20:54)
[2021-09-19] MEDS: TEMAZEPAM 7.5 MG CAPSULE PO PRN (22:33)
--- NOTE | 2021-09-19 22:35 | NUR ---
PATIENT CONTINUE RUMINATING ON HIS MEDICATION. HE ALSO GETS EASILY IRRITABLE, DEMANDING. HE IS INTRUSIVE AND HYPERVERBAL. HE REQUESTED TEMAZEPAM. TEMAZEPAM 7.5MG PO PRN WAS GIVEN TO HELP HIS SLEEP. WILL CONTINUE TO MONITOR.
--- NOTE | 2021-09-20 06:51 | NUR ---
PATIENT SLEPT FOR APPROX 5.45 HRS THROUGH THE NIGHT. WILL CONTINUE TO MONITOR.
[2021-09-20 08:04] VITALS: BP 110/66
[2021-09-20 08:06] VITALS: BP_SYST 114; BP_SYST 97; BP_DIAS 59; BP_DIAS 66
[2021-09-20] MEDS: CLONAZEPAM 1 MG TABLET PO PRN ×2 (08:55→23:27)
[2021-09-20] MEDS: GLUCERNA SHAKE VANILLA 237 ML CAN PO SCH (08:56)
--- NOTE | 2021-09-20 11:09 | NUR ---
GPS: Nursing Notes: Mood Disturbance: Depression: Patient is awake and responding to his name, impaired judgment, gets easily anxious when redirected, manipulative behavior, saying one thing to one staff and another thing to another staff, refusing to shower, stated that he cannot shower because he has OCD, redirected, but continue to refuse to shower, unable to formulate a viable plan for self care, isolative and withdrawn in his room, no interactions with peers, poor grooming, unkempt appearance, resistant with nursing care, setting limits, continue to monitor for safety, continue with treatment plan.
[2021-09-20 16:14] VITALS: BP 104/60
[2021-09-20 20:00] VITALS: BP 112/64
[2021-09-20] MEDS: MIRTAZAPINE 15 MG TABLET PO SCH (20:45)
[2021-09-20] MEDS: ATORVASTATIN 10 MG TABLET PO SCH (20:46)
--- NOTE | 2021-09-20 21:00 | NUR ---
RECEIVED PATIENT IN THE HALLWAY. HE IS NOTED A/O X 3. HE CONTINUE PREOCCUPIED WITH HIS MEDICATION REGIMENT AND HE ASKED MULTIPLE QUESTIONS OVER AND OVER AND OVER AGAIN. PATIENT REQUIRED BIJU REASSURANCE AND REDIRECTIONS. HE IS ISOLATIVE, HE DENIED SI/HI//AH HE IS ABLE TO VERBALLY CFS. V/S STABLE. PT IN NO DISTRESS. HE WAS GIVEN PO FLUIDS AND SNACKS. SAFETY AND FALL PRECAUTIONS ARE IN PLACE. HE IS REASSURED FOR HIS SAFETY. WILL CONTINUE TO MONITOR Q15 MIN CHECKS PER UNIT PROTOCOL.
[2021-09-20] MEDS: TEMAZEPAM 7.5 MG CAPSULE PO PRN (21:50)
[2021-09-21] MEDS: GLUCERNA SHAKE VANILLA 237 ML CAN PO SCH (09:00)
--- NOTE | 2021-09-21 10:30 | NUR ---
GPS: Nursing Notes: Discharge Notes: Patient is awake and responding to his name, compliant with his medication, A/Ox4, denies SI/HI, denies AH/VH, denies pain or discomfort, denies SOB, discharge [place] to self at [address] [facility] [address], [place] [address], took all his belongings with him, instructions and prescription given by staff, per Tal Carcamo NP, patient can drive home with his own transportation - parked in the parking lot, Patient will follow up with his own psychiatrist and network control operator as soon as possible - [facility] for mental health services and outpatient network control operator per social work administrator, escorted by security to his vehicle. Patient does not authorize social work administrator to release any information to his mother or sister.
== END 2021-09-21 10:30 | disposition home or self-care (01) | DRG 885 ==
LOC: ER 07:56 → GPS 10:48
PROVIDERS: ADMIT Nurse Practitioner Psychiatric/Mental Health; ATTEND Nurse Practitioner Acute Care
DX: F25.9 Schizoaffective disorder, unspecified (principal); F42.9 Obsessive-compulsive disorder, unspecified; E66.9 Obesity, unspecified; R53.1 Weakness; E78.5 Hyperlipidemia, unspecified; F32.A Depression, unspecified; F41.9 Anxiety disorder, unspecified; N40.0 Benign prostatic hyperplasia without lower urinary tract symptoms; F29 Unspecified psychosis not due to a substance or known physiological condition; Z73.6 Limitation of activities due to disability; Z20.822 Contact with and (suspected) exposure to COVID-19; Z68.26 Body mass index [BMI] 26.0-26.9, adult
CPT/HCPCS: 36415; 85025; 93005; A4663

== ENCOUNTER → 2021-09-06 | Emergency (ER) | payer SELFPAY ==
[~2021-09-06] VITALS: Ht 180.3 cm; Wt 86.2 kg
[~2021-09-06] MED LIST changes: -LORA-259 PO; +MIRT-93 PO
--- NOTE | 2021-09-06 07:25 | NUR ---
pt not in waiting room when called for triage x 2.
--- NOTE | 2021-09-06 08:14 | NUR ---
DR HANDLEY AT BEDSIDE FOR EVALUATION.
== END | disposition left against medical advice (07) ==
LOC: ER 07:13
DX: Z53.21 Procedure and treatment not carried out due to patient leaving prior to being seen by health care provider (principal)
CPT/HCPCS: A4663

== ENCOUNTER 2021-09-28 13:55 | Emergency (ER) | payer MEDICARE, OTHER ==
[~2021-09-28] VITALS: Ht 180.3 cm; Wt 86.2 kg
[2021-09-28] MEDS ORDERED: IBUPROFEN 600 MG TABLET PO ONE (15:15)
[2021-09-28] MEDS ORDERED: LORAZEPAM 0.5 MG TABLET PO ONE (15:15)
[2021-09-28] MEDS ORDERED: ACETAMINOPHEN 650 MG/20.3 ML LIQUID UDC PO ONE (15:15)
[2021-09-28] MEDS ORDERED: LORAZEPAM 0.5 MG TABLET ONE (15:26)
[2021-09-28] MEDS ORDERED: IBUPROFEN 600 MG TABLET ONE (15:27)
[2021-09-28] MEDS ORDERED: ACETAMINOPHEN 325 MG TABLET ONE (15:27)
[2021-09-28] MEDS ORDERED: ASPIRIN 81 MG TAB.CHEW PO ONE (15:30)
--- NOTE | 2021-09-28 15:30 | NUR ---
PT SEEN AND EVALUATED BY DR SOTO. PT REFUSED MEDICATIONS ORDERED.
--- NOTE | 2021-09-28 16:03 | NUR ---
PT DECIDED TO LEAVE- REFUSING TO WAIT FOR MD TO TALK TO HIM.
[2021-09-28 16:05] VITALS: BP 160/98
== END 2021-09-28 16:06 | disposition left against medical advice (07) ==
LOC: ER 13:55
DX: F41.9 Anxiety disorder, unspecified (principal); R51.9 Headache, unspecified; F25.9 Schizoaffective disorder, unspecified; F42.9 Obsessive-compulsive disorder, unspecified; R03.0 Elevated blood-pressure reading, without diagnosis of hypertension
CPT/HCPCS: A4663

== ENCOUNTER 2021-09-29 19:00 | Emergency (ER) | payer MEDICARE, OTHER ==
--- NOTE | 2021-09-29 19:10 | NUR ---
PATIENT WAS CALLED TO BE TRIAGED BUT WAS NOT PRESENT IN THE WAITING ROOM OR OUTSIDE OF ER.
--- NOTE | 2021-09-29 19:22 | NUR ---
PATIENT WAS CALLED TO BE TRIAGED BUT WAS NOT PRESENT IN THE WAITING ROOM OR OUTSIDE OF ER.
--- NOTE | 2021-09-29 19:40 | NUR ---
PATIENT WAS CALLED TO BE TRIAGED BUT WAS NOT PRESENT IN THE WAITING ROOM OR OUTSIDE OF ER. PATIENT WAS NOT TRIAGED OR SEEN BY ERMD.
== END 2021-09-29 19:41 | disposition left against medical advice (07) ==
LOC: ER 19:02
DX: Z53.21 Procedure and treatment not carried out due to patient leaving prior to being seen by health care provider (principal)

== ENCOUNTER 2021-09-30 12:19 | Inpatient (IN) | payer MEDICARE, OTHER ==
[~2021-09-30] VITALS: Ht 180.3 cm; Wt 86.2 kg
[2021-09-30] MEDS ORDERED: LORAZEPAM 1 MG TABLET ONE (12:44)
[2021-09-30] MEDS ORDERED: LORAZEPAM 0.5 MG TABLET PO ONE (12:45)
[2021-09-30 13:02] LABS: HEMATOCRIT 47.9 % (36.7-47.1); MEAN CORPUSCULAR HEMOGLOBIN 31.2 uug (23.8-33.4); MEAN CORPUSCULAR VOLUME 91.2 fL (73.0-96.2); PLATELET COUNT (AUTO) 256 K/uL (152-348)
[2021-09-30 13:05] LABS: CARBON DIOXIDE 23 mmol/L (21-32); CHLORIDE 103 mmol/L (98-107); GLUCOSE 115 mg/dL (74-106); POTASSIUM 3.8 mmol/L (3.5-5.1); UREA NITROGEN, BLOOD 28 mg/dL (7-18)
[2021-09-30 13:11] LABS: ALANINE AMINOTRANSFERASE 30 U/L (16-63); ALKALINE PHOSPHATASE 73 U/L (50-136); ASPARTATE AMINOTRANSFERASE 17 U/L (15-37); BILIRUBIN,DIRECT 0.1 mg/dL (0.0-0.2); BILIRUBIN,TOTAL 0.7 mg/dL (0.2-1.0); TOTAL PROTEIN, SERUM 7.7 g/dL (6.4-8.2)
[2021-09-30 13:12] LABS: ACETAMINOPHEN < 2.0 ug/mL (10-30)
[2021-09-30 13:27] LABS: ETHANOL < 3 MG/DL (0-0)
[2021-09-30] MEDS ORDERED: OLANZAPINE 10 MG VIAL IM ONE ×2 (15:00→15:02)
[2021-09-30] MEDS ORDERED: LORAZEPAM 2 MG/1 ML VIAL IM ONE (15:00)
[2021-09-30] MEDS ORDERED: LORAZEPAM 2 MG/1 ML VIAL ONE (15:03)
[2021-09-30 16:00] VITALS: BP 142/98
[2021-09-30] MEDS ORDERED: MAGNESIUM HYDROXIDE 30 ML LIQUID UDC PO PRN (16:00)
[2021-09-30] MEDS ORDERED: MAG HYDROX/AL HYDROX/SIMETH 30 ML LIQUID UDC PO PRN (16:00)
[2021-09-30] MEDS ORDERED: BLOOD SUGAR DIAGNOSTIC 1 EACH STRIP VI ONE (16:30)
[2021-09-30 21:02] VITALS: BP 131/68
[2021-09-30] MEDS: CLONAZEPAM 0.5 MG TABLET PO PRN (22:10)
[2021-09-30] MEDS: TEMAZEPAM 7.5 MG CAPSULE PO PRN (23:22)
[2021-10-01 07:30] LABS: HEMATOCRIT 41.9 % (36.7-47.1); MEAN CORPUSCULAR HEMOGLOBIN 31.9 uug (23.8-33.4); MEAN CORPUSCULAR VOLUME 92.1 fL (73.0-96.2); PLATELET COUNT (AUTO) 202 K/uL (152-348)
[2021-10-01 07:37] LABS: CREATININE 0.8 mg/dL (0.6-1.3); POTASSIUM 3.5 mmol/L (3.5-5.1)
[2021-10-01 07:48] VITALS: BP 119/63
[2021-10-01] MEDS: ACETAMINOPHEN 325 MG TABLET PO PRN (08:55)
[2021-10-01] MEDS: CLONAZEPAM 0.5 MG TABLET PO PRN ×2 (11:24→16:38)
[2021-10-01 16:04] VITALS: BP 118/69
[2021-10-01 20:00] VITALS: BP 110/72
[2021-10-01] MEDS: MIRTAZAPINE 15 MG TABLET PO SCH (21:03)
[2021-10-02 07:48] VITALS: BP 106/59
[2021-10-02 15:30] VITALS: BP 120/83
[2021-10-02] MEDS: CLONAZEPAM 0.5 MG TABLET PO PRN ×2 (16:11→23:55)
[2021-10-02 19:30] VITALS: BP 127/75
[2021-10-02] MEDS: MIRTAZAPINE 15 MG TABLET PO SCH (20:31)
[2021-10-02] MEDS: TEMAZEPAM 7.5 MG CAPSULE PO PRN (21:58)
[2021-10-03 07:32] VITALS: BP 102/65
[2021-10-03] MEDS: HALOPERIDOL 2 MG TABLET PO SCH ×2 (10:12→20:26)
[2021-10-03] MEDS ORDERED: CLONAZEPAM 0.5 MG TABLET PO PRN (10:15)
[2021-10-03 16:41] VITALS: BP 102/65
[2021-10-03 19:39] VITALS: BP 125/82
[2021-10-03] MEDS: MIRTAZAPINE 15 MG TABLET PO SCH (20:28)
[2021-10-04 08:02] VITALS: BP 103/70
[2021-10-04] MEDS: HALOPERIDOL 2 MG TABLET PO SCH ×2 (08:22→20:07)
[2021-10-04] MEDS ORDERED: HYDROXYZINE PAMOATE 25 MG CAPSULE PO PRN (09:45)
[2021-10-04] MEDS ORDERED: CLONAZEPAM 0.5 MG TABLET PO PRN (10:15)
[2021-10-04] MEDS: CLONAZEPAM 0.5 MG TABLET PO PRN ×2 (11:41→23:27)
[2021-10-04 16:25] VITALS: BP 115/73
[2021-10-04] MEDS: ACETAMINOPHEN 325 MG TABLET PO PRN (17:50)
[2021-10-04 19:59] VITALS: BP 112/70
[2021-10-04] MEDS: MIRTAZAPINE 15 MG TABLET PO SCH (20:07)
[2021-10-04] MEDS: TEMAZEPAM 7.5 MG CAPSULE PO PRN (21:10)
[2021-10-05 07:40] VITALS: BP 90/60
[2021-10-05] MEDS: HALOPERIDOL 2 MG TABLET PO SCH ×2 (08:33→20:10)
[2021-10-05] MEDS: ACETAMINOPHEN 325 MG TABLET PO PRN ×2 (11:24→17:23)
[2021-10-05 16:04] VITALS: BP 105/71
[2021-10-05 20:01] VITALS: BP 110/68
[2021-10-05] MEDS: MIRTAZAPINE 15 MG TABLET PO SCH (20:10)
[2021-10-05] MEDS: TEMAZEPAM 7.5 MG CAPSULE PO PRN (21:05)
[2021-10-06 07:30] VITALS: BP 107/64
[2021-10-06] MEDS: HALOPERIDOL 2 MG TABLET PO SCH (09:00)
== END 2021-10-06 10:45 | disposition home or self-care (01) | DRG 885 ==
LOC: ER 12:19 → GPS 15:41
PROVIDERS: ADMIT Nurse Practitioner Psychiatric/Mental Health; ATTEND Nurse Practitioner Acute Care
DX: F25.9 Schizoaffective disorder, unspecified (principal); F42.9 Obsessive-compulsive disorder, unspecified; F41.9 Anxiety disorder, unspecified; Z87.01 Personal history of pneumonia (recurrent); Z86.16 Personal history of COVID-19; G47.00 Insomnia, unspecified; Z87.891 Personal history of nicotine dependence; Z91.19 Patient's noncompliance with other medical treatment and regimen; Z20.822 Contact with and (suspected) exposure to COVID-19; F29 Unspecified psychosis not due to a substance or known physiological condition; F98.8 Other specified behavioral and emotional disorders with onset usually occurring in childhood and adolescence
CPT/HCPCS: 36415; 85025; 93005; 97161; A4663; G0480; J2060; J2358

== ENCOUNTER 2021-10-08 13:41 | Inpatient (IN) | payer MEDICARE, OTHER ==
[~2021-10-08] VITALS: Ht 180.3 cm; Wt 84.8 kg
[2021-10-08] MEDS ORDERED: HYDR25CA PO (14:08)
[2021-10-08] MEDS ORDERED: LORAZEPAM 0.5 MG TABLET ONE (14:13)
[2021-10-08] MEDS ORDERED: LORAZEPAM 0.5 MG TABLET PO ONE ×2 (14:15→17:15)
--- NOTE | 2021-10-08 14:23 | NUR ---
PT IS IN ROOM #1B. DR BARNES EVALUATED THE PT.
[2021-10-08 14:48] LABS: MEAN CORPUSCULAR HEMOGLOBIN 31.3 uug (23.8-33.4); MEAN CORPUSCULAR VOLUME 92.6 fL (73.0-96.2); PLATELET COUNT (AUTO) 242 K/uL (152-348)
[2021-10-08 14:55] LABS: CARBON DIOXIDE 28 mmol/L (21-32); CHLORIDE 103 mmol/L (98-107); CREATININE 0.9 mg/dL (0.6-1.3); GLUCOSE 103 mg/dL (74-106); POTASSIUM 4.2 mmol/L (3.5-5.1); UREA NITROGEN, BLOOD 23 mg/dL (7-18)
[2021-10-08 15:01] LABS: ETHANOL < 3 MG/DL (0-0)
[2021-10-08 15:05] LABS: ALANINE AMINOTRANSFERASE 33 U/L (16-63); ALKALINE PHOSPHATASE 73 U/L (50-136); ASPARTATE AMINOTRANSFERASE 21 U/L (15-37); BILIRUBIN,DIRECT 0.1 mg/dL (0.0-0.2); BILIRUBIN,TOTAL 0.6 mg/dL (0.2-1.0); TOTAL PROTEIN, SERUM 7.5 g/dL (6.4-8.2)
[2021-10-08 15:05] LABS: *AMPHETAMINE, URINE NEGATIVE (NEGATIVE); *CANNABINOID, URINE NEGATIVE (NEGATIVE); *COCCAINE, URINE NEGATIVE (NEGATIVE); *OPIATE, URINE NEGATIVE (NEGATIVE); *PHENCYCLIDINE SCREEN,URINE NEGATIVE (NEGATIVE)
[2021-10-08 15:24] LABS: ACETAMINOPHEN < 2.0 ug/mL (10-30)
--- NOTE | 2021-10-08 16:00 | NUR ---
PT WAS EVALUATED BY CRISIS LOBBYIST ART ACCORDING TO DR BARNES REQUEST. PT WAS PLACED ON HOLD GRAVELY DISABLED.
--- NOTE | 2021-10-08 17:27 | NUR ---
REPORT WAS GIVEN TO RN MHU. PT WAS TRANSFERED TO ROOM #140A.
[2021-10-08 17:30] VITALS: BP 134/87
--- NOTE | 2021-10-08 18:00 | NUR ---
Gps/Nursing Admin- Received report from Cheng DE LA ROSA Nurse. Received patient via wheel chair , extremely anxious, fidgety during interview, patient restless, pacing . Patient requesting dinner tray , claimed he has not have any food all day , informed dinner tray ordered .
--- NOTE | 2021-10-08 18:15 | NUR ---
Gps/Regional Refrigerated Cdl Truck Driver- Tal BISQUE KILN PLACER (Psychiatry) was called and was informed of the admission.
--- NOTE | 2021-10-08 18:30 | NUR ---
Gps/Hr Operations Advisor- Called Radha (Mother ) [phone] ([place]) informed of the admission
[2021-10-08] MEDS ORDERED: MAGNESIUM HYDROXIDE 30 ML LIQUID UDC PO PRN (19:00)
[2021-10-08] MEDS ORDERED: CLONAZEPAM 1 MG TABLET PO PRN (19:00)
[2021-10-08] MEDS ORDERED: MAG HYDROX/AL HYDROX/SIMETH 30 ML LIQUID UDC PO PRN (19:00)
[2021-10-08] MEDS ORDERED: ACETAMINOPHEN 325 MG TABLET PO PRN (19:00)
[2021-10-08] MEDS ORDERED: TEMAZEPAM 7.5 MG CAPSULE PO PRN (19:00)
[2021-10-08 20:43] VITALS: BP 126/82
--- NOTE | 2021-10-09 05:14 | NUR ---
Received patient at the start of the shift standing in his room. The patient is dirty, unkept and has a foul odor. Multiple times a shower was offered, but he refused. This patient is fixated on medications and only wants to take Klonopin and Restoril, refusing the Ativan and Ambien that the emergency management consultant Psychiatrist ordered. This patient is argumentative and has selective hearing, all the while speaking over this documentation writer, making it difficult to have any effective communication. Over and over, this patient would show up at the nurses station demanding, begging, bargaining and anything else he could try to manipulate the staff into giving him the medications he is seeking, despite attempts to reason with him or provide education. Patient only slept 2.30 hours. Safety Stratiges are in place .
[2021-10-09 07:30] VITALS: BP 122/49
[2021-10-09] MEDS ORDERED: HYDROXYZINE PAMOATE 25 MG CAPSULE PO PRN (09:00)
[2021-10-09] MEDS: LORAZEPAM 0.5 MG TABLET PO PRN ×2 (11:00→22:19)
--- NOTE | 2021-10-09 11:02 | NUR ---
Gps/Miner Helper-Anxious, requeting to take clonopin, informed patient no clonopin ordered for him, offered ativan 0.5 mg 1 tab. reviewed with patient, hesitant to take medications, encouraged to take, was able to take after prompting. Will continue to monitor behavior
[2021-10-09] MEDS: HALOPERIDOL 2 MG TABLET PO SCH ×3 (11:54→21:03)
[2021-10-09 16:34] VITALS: BP 118/49
--- NOTE | 2021-10-09 17:07 | NUR ---
Gps/Digital Campaign Manager- Called Tal DNP , per patient request, wants restoril for sleep tonging , no order received, patient was informed he needs to adhere to present tx plan .
[2021-10-09 20:11] VITALS: BP 123/78
--- NOTE | 2021-10-10 04:46 | NUR ---
GPS NOTES: Received patient in the room , awake, A&0x3. Patient to be isolative in his room, only interacts to constantly ask for klonopin and restoril, informed patient that psychiatrist had discontinue the order. Increasing agitation noted, patient reasoning out with commercial loan underwriter on the need to have klonopin and restoril medications. Continue educating the patient on the potential addicting s/e of the said medications. Patient unable to comprehend at time. Patient advised to talk to psychiatrist for further questions. Patient compliant with haldol at this time. Ativan given d/t anxiety. Patient noted to sleep well. Closely monitoring observed.
[2021-10-10 07:31] VITALS: BP 108/69
[2021-10-10] MEDS: HALOPERIDOL 2 MG TABLET PO SCH ×2 (08:16→20:35)
--- NOTE | 2021-10-10 09:41 | NUR ---
Gps/Recruiter- Refused to attend his group therapy, noted patient pacing in his room.Hesitant to take his routine am med. haldol 2 mg po, , was able to take after prompting and encouragement
[2021-10-10] MEDS: LORAZEPAM 0.5 MG TABLET PO PRN ×2 (10:47→16:18)
[2021-10-10 16:08] VITALS: BP 121/74
[2021-10-10 19:55] VITALS: BP 122/68
[2021-10-11] MEDS: ZOLPIDEM 5 MG TABLET PO PRN ×2 (01:17→21:34)
[2021-10-11] MEDS: LORAZEPAM 0.5 MG TABLET PO PRN ×2 (01:30→16:57)
--- NOTE | 2021-10-11 05:18 | NUR ---
Patient was isolative in his room for the whole shift. He only came out to ask for food and medications. The patient asks a lot of questions but this database report writer is unable to answer d/t the fact this patient interrupts , has selective hearing and is argumentative. Haldol was given without any difficulty. The patient asked for Ativan and Ambien. Total sleep hours are 3.45 so far. Safety Stratiges are in place.No acute distress noted.
[2021-10-11 07:30] VITALS: BP 103/66
[2021-10-11] MEDS: HALOPERIDOL 2 MG TABLET PO SCH ×2 (08:13→20:28)
--- NOTE | 2021-10-11 11:00 | NUR ---
Gps/Mosaicist- Spoked to Dr Lesly Casas, patient agreed to sign Voluntary. Noted patient had been compliant with his routine Haldol 2 mg po, attending his am group therapy, noted participation in his group this am Continue to make his simple needs known . Watching TV with his group, played bingo with his peer.
[2021-10-11 16:00] VITALS: BP 155/84
[2021-10-11 19:50] VITALS: BP 126/68
[2021-10-11] MEDS ORDERED: MIRTAZAPINE 15 MG TABLET PO SCH (21:00)
--- NOTE | 2021-10-12 05:22 | NUR ---
No changes from the previous night except the patients sleep hours are improving and he has been less argumentative with this life insurance underwriter. Total sleep hours so far are 4.30. Safety Stratiges are in place.
[2021-10-12 07:37] VITALS: BP 112/75
[2021-10-12] MEDS: HALOPERIDOL 2 MG TABLET PO SCH (09:00)
--- NOTE | 2021-10-12 11:28 | NUR ---
Discharge Note: Pt will be discharged to [address] [facility] [facility] [address], [place] [address] via self-driving with his own vehicle that is parked at [facility] at 12PM. Pt stated to that he does not authorize for to release any information to pts mother, Radha and his sister. MD is aware of pts return home by self-driving upon discharge. Pt is aware and agreeable with discharge plans. Pt is alert and oriented x4 and would like to return to his home. Pt denies any suicidal or homicidal ideation. Pt will follow-up with [facility] for mental health services. Pt will also follow-up with his outpatient singer and unloader. Pt stated he does not wish to state the name for privacy reasons. Pt also refused to state his pharmacy to for privacy. Pt presents with calm mood and congruent affect.
--- NOTE | 2021-10-12 12:15 | NUR ---
GPS: Nursing Notes: Discharge Notes: Patient is awake and responding to his name, resistant with nursing care, needs prompting with ADL's, A/Ox4, denies SI/HI, denies AH/VH, denies pain or discomfort, denies SOB, discharge home to self at [address] [facility] [address], [place] [address] via self-driving with his own vehicle that is parked at [facility] per Tal Carcamo, GARDEN MACHINERY MECHANIC orders, instructions given to patient, but no prescription due to patient needs to continue with his Remeron prescribed less that a week ago which he took his own bottle of Remeron with him. Stated that he will take his Remeron as prescribed by the doctor. Patient needs to follow up with his psychiatrist at [facility] and outpatient lock operator as soon a possible, took all his belongings and valuables with his him, escorted to his vehicle by security risk analyst.
== END 2021-10-12 12:15 | disposition home or self-care (01) | DRG 885 ==
LOC: ER 13:41 → GPS 17:02
PROVIDERS: ADMIT Nurse Practitioner Psychiatric/Mental Health; ATTEND Nurse Practitioner Family
DX: F25.9 Schizoaffective disorder, unspecified (principal); F41.9 Anxiety disorder, unspecified; Z20.822 Contact with and (suspected) exposure to COVID-19; F32.A Depression, unspecified; F42.9 Obsessive-compulsive disorder, unspecified; Z59.9 Problem related to housing and economic circumstances, unspecified; Z73.6 Limitation of activities due to disability; Z28.310 Unvaccinated for COVID-19
CPT/HCPCS: 36415; 85025; A4663; G0480

== ENCOUNTER 2021-10-13 15:13 | Emergency (ER) | payer MEDICARE, OTHER ==
[~2021-10-13] VITALS: Ht 185.4 cm; Wt 83.5 kg
[2021-10-13] MEDS ORDERED: LORAZEPAM 0.5 MG TABLET ONE (15:28)
[2021-10-13] MEDS ORDERED: LORAZEPAM 0.5 MG TABLET PO ONE (15:30)
--- NOTE | 2021-10-13 15:33 | NUR ---
DR DE LA CRUZ AT BEDSIDE FOR EVALUATION.
[2021-10-13 16:30] VITALS: BP 125/70
[2021-10-13] MEDS ORDERED: OLANZAPINE 10 MG VIAL IM ONE (16:30)
--- NOTE | 2021-10-13 16:30 | NUR ---
Patient discharged to home in stable condition. Written and verbal after care instructions given. Patient verbalizes understanding of instructions. Stressed follow up or return to ER for worsening s/s.
== END 2021-10-13 16:34 | disposition home or self-care (01) ==
LOC: ER 15:15
DX: F41.9 Anxiety disorder, unspecified (principal); R03.0 Elevated blood-pressure reading, without diagnosis of hypertension; Z86.59 Personal history of other mental and behavioral disorders; Z86.16 Personal history of COVID-19
CPT/HCPCS: A4663

== ENCOUNTER 2021-10-14 09:43 | Emergency (ER) | payer MEDICARE, OTHER ==
[~2021-10-14] VITALS: Ht 177.8 cm; Wt 72.6 kg
--- NOTE | 2021-10-14 11:04 | NUR ---
pt back from CT.
[2021-10-14] MEDS ORDERED: diphenhydrAMINE 50 MG CAPSULE PO ONE (11:30)
[2021-10-14] MEDS ORDERED: METOCLOPRAMIDE HCL 10 MG TABLET PO ONE (11:30)
[2021-10-14 11:34] LABS: CARBON DIOXIDE 28 mmol/L (21-32); CHLORIDE 104 mmol/L (98-107); GLUCOSE 107 mg/dL (74-106); POTASSIUM 3.8 mmol/L (3.5-5.1); UREA NITROGEN, BLOOD 24 mg/dL (7-18)
[2021-10-14 11:38] LABS: ETHANOL < 3 MG/DL (0-0); HEMATOCRIT 46.5 % (36.7-47.1); MEAN CORPUSCULAR VOLUME 92.9 fL (73.0-96.2); PLATELET COUNT (AUTO) 247 K/uL (152-348)
[2021-10-14] MEDS ORDERED: METOCLOPRAMIDE HCL 10 MG TABLET ONE (11:42)
[2021-10-14] MEDS ORDERED: diphenhydrAMINE 50 MG CAPSULE ONE (11:42)
[2021-10-14 11:48] LABS: ALANINE AMINOTRANSFERASE 41 U/L (16-63); ALKALINE PHOSPHATASE 74 U/L (50-136); ASPARTATE AMINOTRANSFERASE 22 U/L (15-37); BILIRUBIN,DIRECT 0.2 mg/dL (0.0-0.2); BILIRUBIN,TOTAL 0.9 mg/dL (0.2-1.0); TOTAL PROTEIN, SERUM 7.6 g/dL (6.4-8.2)
[2021-10-14 11:49] LABS: ACETAMINOPHEN < 2.0 ug/mL (10-30)
[2021-10-14 11:54] LABS: *BILIRUBIN,URIN 1+ (NEGATIVE); *BLOOD, URINE NEGATIVE (NEGATIVE); *CLARITY,URINE CLEAR (CLEAR); *COLOR,URINE YELLOW (YELLOW); *KETONES,URINE NEGATIVE (NEGATIVE); *UROBILINOGEN,URINE 0.2 E.U./dl (NORMAL); LEUKOCYTE ESTERASE ,URINE NEGATIVE (NEGATIVE); NITRITE, URINE NEGATIVE (NEGATIVE); PH,URINE 5.5 (5.0-8.0); UGLUCOSE NEGATIVE (NEGATIVE)
--- NOTE | 2021-10-14 11:55 | NUR ---
Pt back in room, currently refusing his meds, informed and will speak w/pt when he can.
[2021-10-14 12:03] LABS: *AMPHETAMINE, URINE NEGATIVE (NEGATIVE); *CANNABINOID, URINE NEGATIVE (NEGATIVE); *COCCAINE, URINE NEGATIVE (NEGATIVE); *OPIATE, URINE NEGATIVE (NEGATIVE); *PHENCYCLIDINE SCREEN,URINE NEGATIVE (NEGATIVE)
[2021-10-14 12:12] LABS: BACTERIA,URINE FEW /HPF (NONE SEEN); RBC,URINE 0-3 /HPF (0-3); SQUAMOUS EPITHELIAL CELL,UR FEW /HPF (NONE SEEN); WBC,URINE 0-3 /HPF (0-3)
[2021-10-14 12:13] LABS: MUCUS,URINE MANY /LPF (0-FEW)
--- NOTE | 2021-10-14 13:20 | NUR ---
Left w/o signing discharge papers
== END 2021-10-14 13:20 | disposition home or self-care (01) ==
LOC: ER 09:43
DX: Z76.5 Malingerer [conscious simulation] (principal)
CPT/HCPCS: 36415; 70450; 85025; A4663; G0480; J8597; Q0163

== ENCOUNTER 2021-11-08 15:28 | Emergency (ER) | payer MEDICARE, OTHER ==
--- NOTE | 2021-11-08 16:00 | NUR ---
PT CALLED TO TRIAGE - NO ANSWER.
--- NOTE | 2021-11-08 16:23 | NUR ---
PT WAS CALLED TO TRIAGE ROOM - NO ANSWER. PT IS NOT IN WAITING ROOM , NOT OUTSIDE.
--- NOTE | 2021-11-08 17:22 | NUR ---
PT LEFT WITHOUT BEEN TRIAGED.
== END 2021-11-08 17:22 | disposition left against medical advice (07) ==
LOC: ER 15:29
DX: Z53.21 Procedure and treatment not carried out due to patient leaving prior to being seen by health care provider (principal)